=== PATIENT | male | born 1960 | race Caucasian/White ===

== ENCOUNTER 2019-08-29 06:48 | Inpatient (IN) ==
--- NOTE | 2019-08-03 15:38 | PAT Medication Instructions ---
Medication Instructions Date of Service August 03, 2019 Home Medications Medication Instructions Recorded apixaban [Eliquis] 5 mg PO Q12H #60 tab 04/14/19 gabapentin 100 mg PO TID 04/17/18 [History Confirmed 08/03/19] losartan-hydrochlorothiazide 1 tab PO QAM 04/17/18 [History Confirmed 08/03/19] metoprolol succinate 50 mg PO BID 04/17/18 [History Confirmed 08/03/19] naproxen 500 mg PO BID PRN 04/17/18 [History Confirmed 08/03/19] omeprazole 40 mg PO QAM 04/17/18 [History Confirmed 08/03/19] acetaminophen [Tylenol] 650 mg PO Q6H PRN 04/09/19 [History Confirmed 08/03/19] ibuprofen 200 mg PO QID PRN 04/09/19 [History Confirmed 08/03/19] apixaban [Eliquis] 5 mg PO Q12H #60 tab 04/14/19 [Rx Confirmed 08/03/19] carvedilol 12.5 mg PO BID 08/03/19 [History Confirmed 08/03/19] furosemide 20 mg PO QAM 08/03/19 [History Confirmed 08/03/19] glimepiride 2 mg PO QAM 08/03/19 [History Confirmed 08/03/19] hydrochlorothiazide 12.5 mg PO QAM 08/03/19 [History Confirmed 08/03/19] linagliptin [Tradjenta] 5 mg PO QAM 08/03/19 [History Confirmed 08/03/19] potassium chloride 10 meq PO QAM 08/03/19 [History Confirmed 08/03/19] ASK your surgeon for instructions naproxen 500 mg PO BID PRN 04/17/18 [History Confirmed 08/03/19] ibuprofen 200 mg PO QID PRN 04/09/19 [History Confirmed 08/03/19] ASK your prescriber and surgeon apixaban [Eliquis] 5 mg PO Q12H (in order for spinal anesthesia, Apixaban/Eliquis needs to be stopped 3 days/72 hours before surgery. Please check if okay with doctor that prescribes this to you) DO NOT take the morning of surgery losartan-hydrochlorothiazide 1 tab PO QAM 04/17/18 [History Confirmed 08/03/19] furosemide 20 mg PO QAM 08/03/19 [History Confirmed 08/03/19] glimepiride 2 mg PO QAM 08/03/19 [History Confirmed 08/03/19] hydrochlorothiazide 12.5 mg PO QAM 08/03/19 [History Confirmed 08/03/19] linagliptin [Tradjenta] 5 mg PO QAM 08/03/19 [History Confirmed 08/03/19] potassium chloride 10 meq PO QAM 08/03/19 [History Confirmed 08/03/19] Take morning of surgery With a small sip of water, OTHERWISE NOTHING TO EAT OR DRINK AFTER MIDNIGHT: gabapentin 100 mg PO TID 04/17/18 [History Confirmed 08/03/19] metoprolol succinate 50 mg PO BID 04/17/18 [History Confirmed 08/03/19] omeprazole 40 mg PO QAM 04/17/18 [History Confirmed 08/03/19] acetaminophen [Tylenol] 650 mg PO Q6H PRN (okay to take up to 4 hours prior to surgery if needed) carvedilol 12.5 mg PO BID 08/03/19 [History Confirmed 08/03/19] Take evening before surgery gabapentin 100 mg PO TID 04/17/18 [History Confirmed 08/03/19] metoprolol succinate 50 mg PO BID 04/17/18 [History Confirmed 08/03/19] acetaminophen [Tylenol] 650 mg PO Q6H PRN (if needed) carvedilol 12.5 mg PO BID 08/03/19 [History Confirmed 08/03/19] Other Notes If you have any questions please call us at [phone] or [phone] or [phone] or [phone]
--- NOTE | 2019-08-06 07:59 | History & Physical Report ---
Date of Service August 06, 2019 date of surgery: 08-29-19 Assessment & Plan (1) Bilateral primary osteoarthritis of knee: Further care discussed with patient and at this point in time has failed conservative measures and would like to proceed with bilateral total knee replacements. Plan on discharge will be home with home health physical therapy. DVT prophalaxis with TEDs, SCDs and Xarelto for a month postop. Patient will have follow up appointment in our office two weeks post op for staple/suture removal and re-evaluation. Patient otherwise has no other questions or concerns. will check BSG and A1C pre-op, will require medical clearance prior to surgery, PCP is Dr Wiggins. History of Present Illness Chief Complaint: bilateral knee pain Primary Care Provider: Awa Wiggins Mr Haro is a 59 year old male who is here for a follow up of bilateral knee pain, presents for pre-op evaluation prior to bilateral total knee replacements by dr tamayo on 08/29/19. Currently the patient states that the symptoms are moderate-severe and is described as aching, sharp and throbbing. his symptoms occur intermittently. He rates his current pain as 6/10 and worst is 8/10. The symptoms are aggravated by ascending stairs, daily activities, descending stairs, driving, first steps while awake, kneeling, movement, repetitive activities, sleeping in any position, squatting and walking. Eitan states that the symptoms are relieved by no specific activity. In addition to knee pain equally on both sides the patient is also experiencing decreased mobility, difficulty bending, difficulty going to sleep, limping, nighttime awakening, pain, stiffness, tenderness and weakness. Pertinent negatives include chills and fever. The patient has had a previous x-ray and MRI. Prior NSAIDs include naproxen. Prior pain medications include oxycodone. He has been treated with a corticosteroid injection on the right and left side equally. Patient ambulates daily with cane. Patient has had arthroscopic surgery. Patient has had previous b/l knee arthroscopy with Dr. Tamayo in 2002. Allergies Allergy/AdvReac Type Severity Reaction Status Date / Time No Known Allergies Allergy Verified 08/03/19 14:11 Home Medications Home Medications Medication Instructions Recorded Confirmed Type gabapentin 100 mg PO TID 04/17/18 08/03/19 History losartan-hydrochlorothiazide 1 tab PO QAM 04/17/18 08/03/19 History naproxen 500 mg PO BID PRN 04/17/18 08/03/19 History acetaminophen [Tylenol] 650 mg PO Q6H PRN 04/09/19 08/03/19 History ibuprofen 200 mg PO QID PRN 04/09/19 08/03/19 History apixaban [Eliquis] 5 mg PO Q12H #60 tab 04/14/19 08/03/19 Rx carvedilol 12.5 mg PO BID 08/03/19 08/03/19 History furosemide 20 mg PO QAM 08/03/19 08/03/19 History glimepiride 2 mg QAM 08/03/19 08/06/19 History hydrochlorothiazide 12.5 mg PO QAM 08/03/19 08/03/19 History linagliptin [Tradjenta] 5 mg PO QAM 08/03/19 08/03/19 History potassium chloride 10 meq PO QAM 08/03/19 08/03/19 History cholecalciferol (vitamin D3) 1,000 unit PO DAILY 08/06/19 08/06/19 History [Vitamin D3] famotidine 40 mg PO BID 08/06/19 08/06/19 History spironolactone 25 mg PO DAILY 08/06/19 08/06/19 History Past Med/Surg History Medical History A-fib diagnosed 04/2019- on Eliquis/beta daniella Anemia chronic CAD (coronary artery disease) one vessel, non-obstructive CAD per 05/2019 cardiac cath Diabetes mellitus, type 2 NIDDM GERD (gastroesophageal reflux disease) controlled History of asthma controlled Hx of gout Hypertension Morbid obesity Osteoarthritis Osteoporosis Peripheral neuropathy Pulmonary HTN per 07/2019 right heart cath Surgical History History of ankle surgery left ankle/bone spur removal History of repair of rotator cuff left x 2 History of tonsillectomy History of tooth extraction Hx of cardiac cath right heart cath: 07/03/19: PAP are much less compared to what was found of TTE (after commencement of diuretics). RAP 12. RV 48 x 11. PA 46 x 25 with a mean PAP 34. left heart cath: 05/25/19: Mild one vessel CAD (20% pLAD). evidence of prior apical infarction on LVgram and nuclear perfusion scan but no obstructive disease by angiography today (suspected plaque erosion with distal embolizat ion sometime in the past from the plaque noted in the pLAD resulting in an apical infarction). Family History Mother Family history of diabetes mellitus Father Family history of diabetes mellitus Social History Preferred Language: Polish Communication Ability: Effective Planning Supervisor Required: No Beliefs That Will Affect Care: None Current Living Situation: Spouse Feels Safe at Home: Yes Safety Concerns: Feels Safe At This Time Smoking Status: Never smoker Do You Dip or Chew Tobacco: No ; Second Hand Exposure: No ; Hx Alcohol Use: Yes Alcohol type: hard liquor Hx Substance Use: No Review of Systems Review of Systems: All systems reviewed & are unremarkable except as noted in HPI & below Constitutional: no fever, no chills and no sweats Cardiovascular: no chest pain, no dyspnea and no orthopnea Gastrointestinal: no nausea and no vomiting Musculoskeletal: as per Subjective / HPI Physical Exam Physical Exam: Ht: 6ft 1 in Wt: 139kg BP: 164/98 Pulse: 85 Constitutional: WD/WN, vitals as above Respiratory: normal respiratory effort, lungs clear to auscultation no respiratory distress Cardiovascular: RRR, no murmur, no edema Gastrointestinal (Abdomen): normal bowel sounds, soft, nontender, no hepatosplenomegaly Musculoskeletal: Bilateral knee Physical exam Overall patient has neutral alignment bilaterally, there is no atrophy or ecchymosis noted, she does have +2 suprapatellar effusion in both of her knees, she has tenderness to both medial and lateral joint lines to her right knee, more medial sided tenderess to the left knee. negative patellar apprehension, she does have crepitation noted to both knees with active ROM. bilateral knees stable to valgus and varus stress, leyda negative, posterior drawer negative. Range of motion right knee 0/3/110, left knee 0/3/115. her lower extremities are neurovascularly intact, calf soft and non tender, DP pulse +2 bilaterally. Results & Data Laboratory Results Laboratory Results PT 11.5 Seconds (9.0-12.0) 08/06/19 12:31 INR 1.1 (0.9-1.1) 08/06/19 12: APTT 31.7 Seconds (21.0-31.0) H 08/06/19 12: PTT Ratio 1.2 08/06/19 12:31 Diagnostic Findings BILATERAL KNEE X-RAYS SHOWING ADVANCED DEGENERATIVE CHANGES BILATERAL KNEES GREATEST IN MEDIAL COMPARTMENT AND PATELLOFEMORAL JOINT, JOINT SPACE NARROWING, OSTEOPHYTE FORMATION, SUBCHONDRAL SCLEROSIS. NO ACUTE BONY PATHOLOGY.
--- NOTE | 2019-08-06 11:46 | Anesthesiology Consultation ---
Date of Service August 06, 2019 Assessment & Plan (1) Encounter for pre-operative examination: - Awaiting review of preop testing (labs, EKG, CXR). - Awaiting most recent cardiology office visit note (Dr. Judge/Olga) as well as most recent stress test if available. - Check BSG AM DOS - Apixaban/Eliquis instructions: patient made aware that in order for spinal anesthesia, Eliquis needs to be held 72 hours/3 days prior to surgery. Patient voiced understanding/will check if okay with prescriber. Chart Review Chart Review: Patient seen in Pre Admission Testing Teaching & Discussion Pre-Anesthesia Teaching/Discussion Notes: Instructed NPO after midnight before surgery,except medications with 15 cc of water. Medication instructions provided according to the PAT guidelines. History Surgery Operation Date: 08/29/19 07:00 Proposed Procedures p Bilateral Total Knee Arthroplasty - Jonah Robertson DO Height/Weight Height: 6 ft 1 in Weight: 139.2 kg Allergies Allergy/AdvReac Type Severity Reaction Status Date / Time No Known Allergies Allergy Verified 08/03/19 14:11 Medications Home Medications Medication Instructions Recorded Confirmed Last Taken gabapentin 100 mg PO TID 04/17/18 08/03/19 04/10/19 losartan-hydrochlorothiazide 1 tab PO QAM 04/17/18 08/03/19 Unknown naproxen 500 mg PO BID PRN 04/17/18 08/03/19 Unknown acetaminophen [Tylenol] 650 mg PO Q6H PRN 04/09/19 08/03/19 Unknown ibuprofen 200 mg PO QID PRN 04/09/19 08/03/19 Unknown apixaban [Eliquis] 5 mg PO Q12H #60 tab 04/14/19 08/03/19 Unknown carvedilol 12.5 mg PO BID 08/03/19 08/03/19 Unknown furosemide 20 mg PO QAM 08/03/19 08/03/19 Unknown glimepiride 2 mg QAM 08/03/19 08/06/19 Unknown hydrochlorothiazide 12.5 mg PO QAM 08/03/19 08/03/19 Unknown linagliptin [Tradjenta] 5 mg PO QAM 08/03/19 08/03/19 Unknown potassium chloride 10 meq PO QAM 08/03/19 08/03/19 Unknown cholecalciferol (vitamin D3) 1,000 unit PO DAILY 08/06/19 08/06/19 Unknown [Vitamin D3] famotidine 40 mg PO BID 08/06/19 08/06/19 Unknown spironolactone 25 mg PO DAILY 08/06/19 08/06/19 Unknown Past Medical History Medical History A-fib diagnosed 04/2019- on Eliquis/beta daniella Anemia chronic CAD (coronary artery disease) one vessel, non-obstructive CAD per 05/2019 cardiac cath Diabetes mellitus, type 2 NIDDM GERD (gastroesophageal reflux disease) controlled History of asthma controlled Hx of gout Hypertension Morbid obesity Osteoarthritis Osteoporosis Peripheral neuropathy Pulmonary HTN per 07/2019 right heart cath Exercise / Class Metabolic Activity III < 4 Walking/Shop/Light housework Past Family History Family History Mother Family history of diabetes mellitus Father Family history of diabetes mellitus Past Surgical History Surgical History History of ankle surgery left ankle/bone spur removal History of repair of rotator cuff left x 2 History of tonsillectomy History of tooth extraction Hx of cardiac cath right heart cath: 07/03/19: PAP are much less compared to what was found of TTE (after commencement of diuretics). RAP 12. RV 48 x 11. PA 46 x 25 with a mean PAP 34. left heart cath: 05/25/19: Mild one vessel CAD (20% pLAD). evidence of prior apical infarction on LVgram and nuclear perfusion scan but no obstructive disease by angiography today (suspected plaque erosion with distal embolization sometime in the past from the plaque noted in the pLAD resulting in an apical infarction). Past Anesthesia History No Hx of Anesthesia Complications and No Family Hx of Anesthesia Complications History of PONV No Hx of PONV and No Hx of Motion Sickness Social History Smoking Status: Never smoker Do You Dip or Chew Tobacco: No Hx Alcohol Use: Yes Alcohol type: hard liquor alcohol intake frequency: holidays/special occasions only Hx Substance Use: No substance use type: does not use Review of Systems Rare wheezing. Patient denies chest pain, shortness of breath, dyspnea on exertion, palpitations. Physical Exam Vital Signs VITALS BP 98/62 (manual right) P 89 TEMP 98.3 SP02 98%RA RESP 18 PHYSICAL Full neck and c-spine range of motion. Full TMJ range of motion. TMD 3.5 finger breaths Mallampati Score 2 Dentition: missing molars Lungs: clear throughout to auscultation Cardiac: irregularly irregular, regular rhythm, no murmurs noted Spine: normal Carotid arteries: negative bruit Extremities: no edema Trimmed gregorio Testing Laboratory Results 07/03/19 WBC 8.8 H/H 11.7/39.9 PLATELETS 329 SODIUM 139 POTASSIUM 4.5 CHLORIDE 105 CO2 29.0 BUN 27 CREATININE 1.43 GLUCOSE 107 HGBA1C 6.6% Chest X-Ray Date: 04/10/19 Mild to Moderate cardiomegaly. Diaphragms are smooth. Slight prominence of pulmonary vasculature. No focal infiltrate. Small fixed hiatal hernia. Echocardiogram Date: 05/23/19 EF 50-55%. Mild cLVH. Cannot exclude posterior wall motion abnormality. Technically difficult study due to poor acoustic windows. Patient noted to be in a. fib throughout. No significant valvular disease. Severe pulmonary HTN (s ubsequent right heart cath done 07/2019*). Cardiac Catheterization Date: 07/03/19 right heart cath: 07/03/19: PAP are much less compared to what was found of TTE (after commencement of diuretics). RAP 12. RV 48 x 11. PA 46 x 25 with a mean PAP 34. left heart cath: 05/25/19: Mild one vessel CAD (20% pLAD). evidence of prior apical infarction on LVgram and nuclear perfusion scan but no obstructive disease by angiography today (suspected plaque erosion with distal embolization sometime in the past from the plaque noted in the pLAD resulting in an apical infarction). LVEF 55%. "May proceed with the planned knee operation without additional cardiac testing."
--- NOTE | 2019-08-06 13:02 | XRay Report ---
XR chest Pre-admission PA/Lat CLINICAL HISTORY: Preoperative chest. Cough. COMPARISON STUDY: 04/10/2019 FINDINGS: The heart is the upper limits of normal in size. There is no failure. There is no focal pul monary consolidation. There are no pleural effusions.[ IMPRESSION: No active disease in the chest. ACT 112: Negative or not required by law. Electronically signed by: Judd Azar M.D. 08/06/2019 1:00 PM
[2019-08-06 14:20] LABS: INR 1.1 (0.9-1.1); Partial Thromboplastin Ratio 1.2; Partial Thromboplastin Time 31.7 Seconds (21.0-31.0); Prothrombin Time 11.5 Seconds (9.0-12.0)
--- NOTE | 2019-08-06 15:39 | Electrocardiogram Report ---
Test Reason : Blood Pressure : / mmHG Vent. Rate : 084 BPM Atrial Rate : 416 BPM P-R Int : 000 ms QRS Dur : 098 ms QT Int : 414 ms P-R-T Axes : 000 079 090 degrees QTc Int : 489 ms Atrial fibrillation Prolonged QT Abnormal ECG When compared with ECG of 10-APR-2019 12:10, QT has lengthened Confirmed by Janes Cr ([id number]) on 08/06/2019 3:39:15 PM Referred By: Jonah Robertson Confirmed By:Janes Cr
[~2019-08-29 06:48] MED LIST: ACETAMINOPHEN 500 MG TAB PO SCH; BUPIVACAINE 0.5 % 5 MG/1 ML PF 10ML VIAL ONE; CEFAZOLIN 3000MG 72.5 ML IV SCH; CeleBREX 200 MG CAP PO SCH; FAMOTIDINE 20 MG TAB PO SCH; GABAPENTIN 600 MG DOSE PO SCH; LR 500ML BOLUS, THEN 15ML/HR IV SCH; METOCLOPRAMIDE HCL 10 MG TABLET PO SCH; ROPIVACAINE 0.5% 5 MG/ML 30 ML VIAL ONE; ROPIVACAINE 0.5% HCL/PF 150 MG, BUPIVACAINE 0.5% MPF 30 ML, EPINEPHrine 30MG/30ML (OR U... INFIL SCH; TRANEXAMIC ACID 1,000 MG **IV Intra-op IV SCH; TRANEXAMIC ACID 1,000 MG **IV Pre-op IV SCH; dexAMETHasone 4 MG TAB PO SCH
[2019-08-29] MEDS ORDERED: ORTHO JOINT ANESTHETIC ONE (07:09)
[2019-08-29] MEDS ORDERED: BACITRACIN INJ 50,000 UNIT VIAL ONE ×2 (07:10→10:41)
[2019-08-29] MEDS ORDERED: ONDANSETRON INJ 2 MG/ML 2 ML VIAL ONE (07:13)
[2019-08-29] MEDS ORDERED: PROPOFOL IV EMULSION 10 MG/ML 20 ML VIAL IV ONE (07:13)
[2019-08-29] MEDS ORDERED: MIDAZOLAM HCL 1 MG/ML 2ML VIAL ONE ×2 (07:13→07:14)
[2019-08-29] MEDS ORDERED: DEXAMETHASONE SOD INJ 4 MG/ML VIAL ONE (07:13)
[2019-08-29] MEDS ORDERED: NEOSTIGMINE METHYLSULFATE 5 MG/5 ML SYR ONE (07:13)
[2019-08-29] MEDS ORDERED: GLYCOPYRROLATE 0.2 MG/ML VIAL ONE ×2 (07:13→10:19)
[2019-08-29] MEDS ORDERED: LIDOCAINE HCL 2% 2 ML VIAL/AMP(20MG/ML) INFIL ONE (07:13)
[2019-08-29] MEDS ORDERED: fentaNYL citrate 100 MCG/2 ML VIAL ONE ×2 (07:14→10:01)
--- NOTE | 2019-08-29 07:30 | History & Physical Bridge Note ---
Date of Service August 29, 2019 History & Physical Bridge Note I have examined the patient, reviewed the History & Physical and in the interval since the performance of the History & Physical I have noted the following changes of clinical significance: no changes noted
[2019-08-29] MEDS ORDERED: ePHEDrine sulfate 50 MG/ML AMP IV PRN (08:00)
[2019-08-29] MEDS ORDERED: ONDANSETRON INJ 2 MG/ML 2 ML VIAL IV PRN ×2 (08:00→13:04)
[2019-08-29] MEDS ORDERED: ATROPINE SULFATE 0.1 MG/ML 10ML SYR IV PRN (08:00)
[2019-08-29] MEDS ORDERED: KETOROLAC 30 MG/ML VIAL IV PRN (08:00)
[2019-08-29] MEDS ORDERED: PHENYLEPHRINE 100MCG/ML 5ML SYR IV PRN (08:00)
[2019-08-29] MEDS ORDERED: PHENYLEPHRINE 100MCG/ML 5ML SYR ONE (09:39)
[2019-08-29] MEDS ORDERED: ROCURONIUM BROMIDE 10 MG/ML 5 ML VIAL ONE (09:39)
--- NOTE | 2019-08-29 10:55 | Operative Report ---
Post Operative Report Pre & Post Diagnosis Operation Date: 08/29/19 08:20 Pre-Op Diagnosis: Bilateral Knee Osteoarthritis Post-Op Diagnosis: Bilateral Knee Osteoarthritis I identified the patient and participated in the time-out.: Yes Procedure Operation Date: 08/29/19 08:20 Actual Procedures p Bilateral Total Knee Arthroplasty(Bilateral) utilizing [employer] journey 2 non-block total knee arthroplasty right size 8 femur 7 tibia 10 polyethylene 35 oval patella left size 8 femur 7 tibia 9 polyethylene 35 oval patella- Jonah Robertson DO Surgeon Jonah Robertson DO [employer] GANN Estimated Blood Loss 10 Findings Consistent with Post-Op Diagnosis Patient presents severe end-stage tricompartmental degenerative joint disease bilateral knees no response to conservative management patient had varus alignment 10 degree flexion contractures medial osteophytes eburnated bone subchondral cystic changes all no response to conservative management Specimens Bone and cartilage Drains Medium bore Hemovac Complications none Disposition Accompanied Patient To Recovery: No Disposition: Recovery Room Indications Patient presents being seen evaluate with complaints of severe end-stage tricompartmental degenerative joint disease bilateral knees no response to conservative management patient failed attempts of Visco supplementation corticosteroid injection relative rest activity modification bracing physical therapy patient presents for bilateral total knee arthroplasty the above intraoperative findings were noted Description of Procedure After proper prepping and draping of the bilateral lower extremities, an anterior midline incision was made over the region of the extensor extensor mec hanism of the left knee. After meticulous hemostasis was obtained and maintained in subcutaneous tissues a medial parapatellar incision was made The patella was subluxed lateralward the medial lateral gutter were cleaned from any hypertrophic synovitis and scar tissue of the distal femoral block was placed and the distal femoral osteotomy cut was made subsequently the chamfers anterior and posterior osteotomy cuts were made utilizing the 4-in-1 block the tibia was subsequently subluxed anteriorward medial and ateral meniscal remnants were excised in their entirety remnants of the anterior and posterior cruciate ligaments were excised in their entirety excellent exposure of the proximal tibia was obtained the tibial osteotomy guide was placed on the proximal tibial osteotomy cut was made once again the knee was irrigated with copious amounts of sterile saline solution the patella was subsequently everted lateralward thickened scar tissue around the patella was removed the patella was subsequently cut utilizing a freehand technique and was drilled prepared for final preparation and placement of patella socially flexion-extension gaps were checked and the equal and symmetric trials were placed to the appropriate femoral and tibial trials with poly-spacer being placed for equal flexion and extension gaps and full range of motion including extension to 0 and flexion to 140 the trial components after having been taken to recovery range of motion was subsequently removed meticulous hemostasis was obtained and maintained subsequently a knee block injection of joint cocktail including ropivacaine 0.5% 150 mg. Bupivacaine 0.5% epinephrine 1-200,030 mL's toradol 30 mg dexamethasone 4 mg ketamine 10 mg clonidine 100 micrograms normal saline solution 30 mg was infiltrated into the soft tissues of the posterior knee medial lateral gutters and periosteal synovium special attention was paid to protect neurovascular structures at all times subsequently trial components having been removed the knee was irrigated with sterile saline solution. debris was removed the proximal tibia was subsequently prepared and was made ready for the placement of the tibial component tibial component was also cemented and tamped into position the femoral component was subsequently placed and cemented in the position the patellar component was subsequently cemented in position because hemostasis once again obtained and maintained wound having been thoroughly irrigated with debridement and debridement lavage was performed as well as a medial parapatellar incision closed with #1 Vicryl in interrupted fashion subcutaneous was closed with #2 Vicryl skin was closed with skin clips Next, an anterior midline incision was made over the region of the extensor extensor mechanism of the right knee. After meticulous hemostasis was obtained and maintained in subcutaneous tissues a medial parapatellar incision was made The patella was subluxed lateralward the medial lateral gutter were cleaned from any hypertrophic synovitis and scar tissue of the distal femoral block was placed and the distal femoral osteotomy cut was made subsequently the chamfers anterior and posterior osteotomy cuts were made utilizing the 4-in-1 block the tibia was subsequently subluxed anteriorward medial and ateral meniscal remnants were excised in their entirety remnants of the anterior and posterior cruciate ligaments were excised in their entirety excellent exposure of the proximal tibia was obtained the tibial osteotomy guide was placed on the proximal tibial osteotomy cut was made once again the knee was irrigated with copious amounts of sterile saline solution the patella was subsequently everted lateralward thickened scar tissue around the patella was removed the patella was subsequently cut utilizing a freehand technique and was drilled prepared for final preparation and placement of patella socially flexion-extension gaps were checked and the equal and symmetric trials were placed to the appropriate femoral and tibial trials with poly-spacer being placed for equal flexion and extension gaps and full range of motion including extension to 0 and flexion to 140 the trial components after having been taken to recovery range of motion was subsequently removed meticulous hemostasis was obtained and maintained subsequently a knee block injection of joint cocktail including ropivacaine 0.5% 150 mg. Bupivacaine 0.5% epinephrine 1-200,030 mL's toradol 30 mg dexamethasone 4 mg ketamine 10 mg clonidine 100 micrograms normal saline solution 30 mg was infiltrated into the soft tissues of the posterior knee medial lateral gutters and periosteal synovium special attention was paid to protect neurovascular structures at all times subsequently trial components having been removed the kn ee was irrigated with sterile saline solution. debris was removed the proximal tibia was subsequently prepared and was made ready for the placement of the tibial component tibial component was also cemented and tamped into position the femoral component was subsequently placed and cemented in the position the patellar component was subsequently cemented in position because hemostasis once again obtained and maintained wound having been thoroughly irrigated with debridement and debridement lavage was performed as well as a medial parapatellar incision closed with #1 Vicryl in interrupted fashion subcutaneous was closed with #2 Vicryl skin was closed with skin clips.. PA-C was necessary for prepping and drapping as well as wound closure of deep fascia Sub cutaneous tissue and skin and was necessary for the case. A sterile compressive dressings were placed, patient was taken to recovery in stable condition of report dictated by Marcelo I attest to the content of the Intraoperative Record and any orders documented therein. Any exceptions are noted below. I attest to the content of the Intraoperative Record and any orders documented therein. Any exceptions are noted below.
[2019-08-29] MEDS: HYDROmorphone INJ 1 MG/ML SYRINGE IV PRN ×8 (11:53→12:28)
--- NOTE | 2019-08-29 12:20 | XRay Report ---
XR knee LT 1 or 2V routine CLINICAL HISTORY: Surgical Post Op postoperative evaluation COMPARISON: None. DISCUSSION: Anatomic alignment post total left knee arthroplasty. Could contact between prosthetic an d underlying bone. Surgical drains are in position. Corrected soft tissue postoperative change IMPRESSION: No acute process post total left knee arthroplasty. ACT 112: Negative or not required by law. The above report was generated using voice recognition software. It may contain grammatical, syntax or spelling errors. Electronically signed by: Miguel Brasher M.D. 08/29/2019 12:19 PM
--- NOTE | 2019-08-29 12:24 | XRay Report ---
XR knee RT 1 or 2V routine HISTORY: 59 years-old Male Surgical Post Op right knee total joint arthroplasty. History of degenera tive joint disease COMPARISON: Right knee radiographs 04/11/2018 TECHNIQUE: 2 views of the right knee FINDINGS: Right knee total joint arthroplasty and patella resurfacing. Anterior midline skin binta are noted along with expected postsurgical soft tissue swelling and deep tissue air with surgical drainage cath eter. No acute fracture or retained foreign body. IMPRESSION: Satisfactory alignment of the right knee total joint arthroplasty. ACT 112: Negative or not required by law. The above report was generated using voice recognition software. It may contain grammatical, syntax o r spelling errors. Electronically signed by: Dave Echols M.D. 08/29/2019 12:23 PM
--- NOTE | 2019-08-29 12:50 | Anesthesiology Progress Note ---
Date of Service August 29, 2019 Anesthesia Post Procedure Vital Signs Vital Signs: Temp Pulse Pulse Resp BP Pulse Ox 08/29/19 12:45 36.8 C 70 18 123/89 96 08/29/19 12:35 79 18 120/85 96 08/29/19 12:25 84 18 136/94 96 08/29/19 12:15 86 18 138/93 94 08/29/19 12:05 88 18 143/92 H 99 08/29/19 11:55 74 18 131/86 100 08/29/19 11:45 82 18 130/92 100 08/29/19 11:38 36.2 C L 88 18 94/68 L 97 08/29/19 07:27 36.7 C 78 20 146/97 H 99 Pain Intensity Bilateral Knee: Pain Intensity: 3 Transfer of Care Handoff Completed per policy Notes Mental Status: alert / awake / arousable Patient Amnestic to Procedure: Yes Nausea / Vomiting: adequately controlled Pain: adequately controlled Airway Patency, RR, SpO2: stable & adequate BP & HR: stable & adequate Hydration State: stable & adequate Anesthetic Complications: no major complications apparent
[2019-08-29] MEDS ORDERED: bisacodyL 10 MG SUPP PR PRN (13:04)
[2019-08-29] MEDS ORDERED: SODIUM CHLORIDE 0.9% 1000ML 1,000 ML IV SCH (13:04)
[2019-08-29] MEDS ORDERED: NALOXONE HCL 0.4 MG/1 ML VIAL/CARP IV PRN (13:04)
[2019-08-29] MEDS ORDERED: PHARMACY GLYCEMIC MGMT CONSULT PRN (13:36)
[2019-08-29] MEDS: GABAPENTIN 100 MG CAP PO SCH ×2 (13:39→20:04)
[2019-08-29] MEDS: ACETAMINOPHEN 500 MG TAB PO SCH ×2 (13:39→21:18)
[2019-08-29] MEDS ORDERED: GLUCAGON FOR INJ 1 MG VIAL SQ PRN (14:00)
[2019-08-29] MEDS ORDERED: CARBOHYDRATES FOR HYPOGLYCEMIA PO PRN (14:00)
[2019-08-29] MEDS ORDERED: DEXTROSE 50% 50 ML SYRINGE IV PRN (14:00)
[2019-08-29] MEDS ORDERED: GLUCOSE 40% GEL 15 GM TUBE PO PRN (14:00)
[2019-08-29] MEDS ORDERED: GLUCOSE 10 TABS/TUBE PO PRN (14:00)
--- NOTE | 2019-08-29 14:06 | Pharmacy Report ---
Pharmacy Glycemic Short Note 2 - Date of Service August 29, 2019 - Glycemic Short BSG Results (Last 24 hours): 08/29/19 08/29/19 07:33 11:38 POC Glucose 142 H 204 H OUTPATIENT ANTIDIABETIC REGIMEN: * Linagliptin 5 mg daily * A1c 6.9% 04/10/19 - updated A1c pending ASSESSMENT: * 59 yr old T2DM s/p b/l TKA * Anticipate steroid induced hyperglycemia per patient was given both oral and IV dexamethasone rosalba-op in addition to ortho mix (contains 4 mg DXM) * Pt is maintained on oral antidiabetic agents as an outpatient * Will hold oral agents for admission and utilize SQ basal bolus insulin regimen which is the recommended regimen for inpatient glycemic control. * One time dose of NPH 0.4 units/kg (based on AdjBW) * Novolog dosed at weight/stress 3 PLAN FOR INPATIENT GLYCEMIC CONTROL: * Hold outpatient oral diabetes medications * Basal insulin * NPH 40 units SQ x 1 * Bolus insulin * NovoLog per scale ACHS or Q6hrs while NPO * Goal Range: Low 110 mg/dL - High 140 mg/dL * Correction Factor: 15 mg/dL/unit * Nutritional / Prandial insulin per carb ratio of 1 unit per 5 grams CHO consumed * Overnight checks at 00 and 04 PLAN FOR DISCHARGE: * A1c pending * A1c from April 2019 is at goal
[2019-08-29] MEDS ORDERED: INSULIN HUMAN NPH SC ONE (14:15)
[2019-08-29] MEDS: CEFAZOLIN 2000MG 2,000 MG/15 ML SYR IV SCH ×2 (16:37→23:57)
[2019-08-29] MEDS: INSULIN ASPART 100 UNITS/ML 3 ML PEN SC SCH ×3 (17:36→23:57)
[2019-08-29] MEDS: FERROUS GLUCONATE 324 MG TAB PO SCH (17:40)
[2019-08-29] MEDS: OXYCODONE HCL IR 5 MG TAB (IMMEDIATE RELEASE) PO PRN (20:01)
[2019-08-29] MEDS: carvediloL 12.5 MG TAB PO SCH (20:03)
[2019-08-29] MEDS: SENNA 8.6 MG TAB PO SCH (20:03)
[2019-08-29] MEDS: FAMOTIDINE 40 MG TABLET PO SCH (20:04)
[2019-08-29] MEDS: DOCUSATE SODIUM 100 MG CAP PO SCH (20:36)
[2019-08-30] MEDS: INSULIN ASPART 100 UNITS/ML 3 ML PEN SC SCH ×5 (03:47→21:48)
[2019-08-30] MEDS: ACETAMINOPHEN 500 MG TAB PO SCH ×3 (05:09→21:55)
[2019-08-30 06:11] LABS: Hematocrit (blood only) 33.6 % (42-52); Hemoglobin 10.1 g/dL (14.0-18.0); Mean Corpuscular Hemoglobin 21.7 pg (25-34); Mean Corpuscular Hgb Conc 30.1 g/dL (32-36); Mean Corpuscular Volume 72.1 fL (80-100); Mean Platelet Volume 10.8 fL (7.4-10.4); Platelet Count 298 K/uL (130-400); RDW Coefficient of Variation 18.7 % (11.5-14.5); RDW Standard Deviation 49.1 fL (36.4-46.3); Red Blood Count 4.66 M/uL (4.7-6.1); White Blood Count 14.72 K/uL (4.8-10.8)
[2019-08-30 06:50] LABS: BUN Creatinine Ratio 23.6 (10-20); Calcium 9.2 mg/dl (8.5-10.1); Est GFR (African American) 66.1; Est GFR (Non-African American) 57.1
--- NOTE | 2019-08-30 07:57 | Anesthesiology Progress Note ---
Date of Service August 30, 2019 Anesthesia Post Procedure Vital Signs Vital Signs: Temp Pulse Pulse Resp BP Pulse Ox 08/30/19 07:07 36.6 C 91 H 20 135/99 99 08/30/19 03:45 36.8 C 99 H 20 100/69 93 08/29/19 22:55 37.2 C 94 H 20 138/87 94 08/29/19 20:06 36.8 C 90 20 132/82 99 08/29/19 15:58 36.6 C 84 16 123/74 91 08/29/19 14:56 36.4 C L 86 16 124/80 93 08/29/19 14:00 92 H 18 119/77 100 08/29/19 13:30 36.4 C L 67 16 131/84 99 08/29/19 13:06 36.8 C 76 15 127/87 97 08/29/19 12:45 36.8 C 70 18 123/89 96 08/29/19 12:35 79 18 120/85 96 08/29/19 12:25 84 18 136/94 96 08/29/19 12:15 86 18 138/93 94 08/29/19 12:05 88 18 143/92 H 99 08/29/19 11:55 74 18 131/86 100 08/29/19 11:45 82 18 130/92 100 08/29/19 11:38 36.2 C L 88 18 94/68 L 97 Pain Intensity Bilateral Knee: Pain Intensity: 3 Notes Mental Status: alert / awake / arousable and participated in evaluation Patient Amnestic to Procedure: Yes Nausea / Vomiting: adequately controlled Pain: adequately controlled Airway Patency, RR, SpO2: stable & adequate BP & HR: stable & adequate Hydration State: stable & adequate Anesthetic Complications: no major complications apparent and Pt Satisfied with anesthetic care
--- NOTE | 2019-08-30 08:01 | Orthopedic Progress Note ---
Date of Service August 30, 2019 Assessment & Plan (1) Bilateral primary osteoarthritis of knee: Postop day 1 status post bilateral total knee arthroplasties. PT/OT protocols. Weightbearing as tolerated. DVT prophylaxis with Eliquis twice daily, SCDTHIERNO perkins. Pain management with hydromorphone, oxycodone, Tylenol, Toradol. Mild leukocytosis-asymptomatic presently. Post likely secondary due to preoperative steroids and surgical stress. Will follow. Discharge planning-patient is planning for home health services upon discharge. Subjective Postop day 1 Patient currently lying in bed sleeping. He is in the process of doing his b edside exercises with heel props under his heels. He is easily awoken. He states that his pain control is fairly good this morning. Denies any chest pain or nausea and vomiting. He states that he has some mild shortness of breath with activity of which she has had. He denies using oxygen at home. No other complaints at this time. He is hoping to have home health services upon discharge. Physical Exam Physical Exam: Dressings are clean, dry, and intact. Calves are soft and nontender. Neurovascular is intact. Toes are mobile. He has good dorsiflexion and plantar flexion on bilateral feet/ankles. Hemovacs present and functioning. Results & Data ([facility]) Vital Signs (Past 12 Hours) Vital Signs Temp Pulse Resp BP Pulse Ox 08/30/19 07:07 36.6 C 91 H 20 135/99 99 08/30/19 03:45 36.8 C 99 H 20 100/69 93 08/29/19 22:55 37.2 C 94 H 20 138/87 94 08/29/19 20:06 36.8 C 90 20 132/82 99 Laboratory Results Laboratory Results WBC 14.72 K/uL (4.8-10.8) H 08/30/19 05:33 RBC 4.66 M/uL (4.7-6.1) L 08/30/19 05:33 Hgb 10.1 g/dL (14.0-18.0) L 08/30/19 05:33 Hct 33.6 % (42-52) L 08/30/19 05:33 MCV 72.1 fL (80-100) L 08/30/19 05:33 MCH 21.7 pg (25-34) L 08/30/19 05:33 MCHC 30.1 g/dL (32-36) L 08/30/19 05:33 RDW Std Deviation 49.1 fL (36.4-46.3) H 08/30/19 05:33 RDW Coeff of Maribel 18.7 % (11.5-14.5) H 08/30/19 05:33 Plt Count 298 K/uL (130-400) 08/30/19 05:33 MPV 10.8 fL (7.4-10.4) H 08/30/19 05:33 PT 11.5 Seconds (9.0-12.0) 08/06/19 12:31 INR 1.1 (0.9-1.1) 08/06/19 12:31 APTT 31.7 Seconds (21.0-31.0) H 08/06/19 12:31 PTT Ratio 1.2 08/06/19 12:31 Sodium 135 mmol/L (136-145) L 08/30/19 05:33 Potassium 4.0 mmol/L (3.5-5.1) 08/30/19 05:33 Chloride 101 mmol/L (98-107) 08/30/19 05:33 Carbon Dioxide 29 mmol/L (21-32) 08/30/19 05:33 Anion Gap 5.0 (3-11) 08/30/19 05:33 BUN 32 mg/dl (7-18) H 08/30/19 05:33 Creatinine 1.35 mg/dl (0.6-1.4) 08/30/19 05:33 Est Cr Clr Drug Dosing 87.0 ml/min 08/30/19 05:33 Est GFR ( Amer) 66.1 08/30/19 05:33 Est GFR (Non-Af Amer) 57.1 08/30/19 05:33 BUN/Creatinine Ratio 23.6 (10-20) H 08/30/19 05:33 Glucose 158 mg/dl (70-99) H 08/30/19 05:33 POC Glucose 132 mg/dl (70-99) H 08/30/19 03:36 Calcium 9.2 mg/dl (8.5-10.1) 08/30/19 05:33 Blood Type O Positive 08/06/19 12:31 Antibody Screen NEGATIVE 08/06/19 12:31
[2019-08-30] MEDS: GABAPENTIN 100 MG CAP PO SCH ×3 (08:37→22:15)
[2019-08-30] MEDS: carvediloL 12.5 MG TAB PO SCH ×2 (08:38→21:53)
[2019-08-30] MEDS: FAMOTIDINE 40 MG TABLET PO SCH ×2 (08:38→21:55)
[2019-08-30] MEDS: SPIRONOLACTONE 25 MG TAB PO SCH (08:38)
[2019-08-30] MEDS: APIXABAN 5 MG TABLET PO SCH ×2 (08:38→21:54)
[2019-08-30] MEDS: CHOLECALCIFEROL 1,000 UNITS 25 MCG TAB PO SCH (08:38)
[2019-08-30] MEDS: DOCUSATE SODIUM 100 MG CAP PO SCH ×2 (08:39→21:53)
[2019-08-30] MEDS: FERROUS GLUCONATE 324 MG TAB PO SCH ×2 (08:39→17:47)
[2019-08-30] MEDS: POTASSIUM CHLORIDE 10 MEQ TABCR PO SCH (08:39)
[2019-08-30] MEDS: MULTIVITAMIN TAB PO SCH (08:39)
[2019-08-30 08:47] LABS: Estimated Average Glucose 166 mg/dl; Hemoglobin A1C 7.4 % (4.5-5.6)
[2019-08-30] MEDS ORDERED: NON-FORMULARY MEDICATION (Linagliptin [Tradjenta] 5 MG) PO SCH (09:00)
[2019-08-30] MEDS ORDERED: GLIMEPIRIDE 2 MG TAB PO SCH (09:00)
[2019-08-30] MEDS ORDERED: LOSARTAN/HCTZ 50/12.5MG TAB PO SCH (09:00)
[2019-08-30] MEDS: OXYCODONE HCL IR 5 MG TAB (IMMEDIATE RELEASE) PO PRN ×3 (09:04→19:43)
--- NOTE | 2019-08-30 09:12 | Consultation ---
Date of Consultation August 30, 2019 Assessment & Plan (1) Bilateral primary osteoarthritis of knee: s/p b/l TKR by Dr Robertson, POD #1. Defer pain management, disposition, etc to orthopedics. (2) Acute blood loss anemia: mild-moderate. repeat CBC in am. MCV is microcytic -- check iron studies in am to r/o chronic iron deficiency. Cont Fe supplementation. (3) A-fib: Cont coreg for rate control. If rate control proves difficult consider changing to metoprolol in katherin. Cont eliquis for anticoagulation. (4) CAD (coronary artery disease): Minimal nonobstructive CAD (single vessel) on recent heart cath. No ischemic symptoms perioperatively. Cont BB. Really should be on statin therapy chronically. Will discuss with him prior to d/c. (5) Diabetes mellitus, type 2: Uncontrolled - 2nd to perioperative stress and dose of steroids yesterday. Pharmacy managing - appreciate their assistance. (6) GERD (gastroesophageal reflux disease): Cont H2 daniella (7) Hx of gout: with his gout history would suggest not using HCTZ chronically. will d/w patient. (8) Hypertension: low or low-normal BPs today but most recent level was acceptable. place ARB-HCTZ on hold. follow carefully. cont coreg. (9) Morbid obesity: BMI 41 (10) Peripheral neuropathy: 2nd DM. cont gabapentin. (11) Acute kidney injury: mild pre-op Cr was 1 today 1.3 hold ARB-HCTZ repeat BMP am (12) DVT prophylaxis: eliquis BID ?heavy alcohol intake periodically -- add MVI, thiamine, folate. Thank you for this consult. Will follow with you. History of Present Illness Requesting Physician: Jonah Robertson DO Reason for Consultation: post-op medical management Attending Physician: Jonah Robertson DO History of Present Illness 59yo male with HTN, T2DM, permanent a.fib on chronic anticoagulation, nonobstructive CAD, gout, morbid obesity, and chronic anemia (Fe def?) who is now POD #1 from b/l TKR by Dr Robertson. I saw the patient on the orthopedic floor and his biggest complaint was that of b/l knee pain. He denied headache, nausea, emesis, abd pain, chest pain, dyspnea, dizziness, or cough. He has passed flatus since the operation but no stool. BSGs have been elevated since the operation. Nursing staff report his BPs were mildly low this afternoon but have improved with time. He has been eating well since the surgery. Allergies Allergy/AdvReac Type Severity Reaction Status Date / Time No Known Allergies Allergy Verified 08/29/19 07:20 Home Medications Home Medications Medication Instructions Recorded Confirmed Type gabapentin 100 mg PO TID 04/17/18 08/29/19 History losartan-hydrochlorothiazide 1 tab PO QAM 04/17/18 08/29/19 History naproxen 500 mg PO BID PRN 04/17/18 08/29/19 History acetaminophen [Tylenol] 650 mg PO Q6H PRN 04/09/19 08/29/19 History ibuprofen 200 mg PO QID PRN 04/09/19 08/29/19 History apixaban [Eliquis] 5 mg PO Q12H #60 tab 04/14/19 08/29/19 Rx carvedilol 12.5 mg PO BID 08/03/19 08/29/19 History furosemide 20 mg PO QAM 08/03/19 08/29/19 History glimepiride 2 mg QAM 08/03/19 08/29/19 History hydrochlorothiazide 12.5 mg PO QAM 08/03/19 08/29/19 History linagliptin [Tradjenta] 5 mg PO QAM 08/03/19 08/29/19 History potassium chloride 10 meq PO QAM 08/03/19 08/29/19 History cholecalciferol (vitamin D3) 1,000 unit PO DAILY 08/06/19 08/29/19 History [Vitamin D3] famotidine 40 mg PO BID 08/06/19 08/29/19 History spironolactone 25 mg PO DAILY 08/06/19 08/29/19 History Patient History Medical History A-fib diagnosed 04/2019- on Eliquis/beta daniella Anemia chronic CAD (coronary artery disease) one vessel, non-obstructive CAD per 05/2019 cardiac cath Diabetes mellitus, type 2 NIDDM GERD (gastroesophageal reflux disease) controlled History of asthma controlled Hx of gout Hypertension Morbid obesity Osteoarthritis Osteoporosis Peripheral neuropathy Pulmonary HTN per 07/2019 right heart cath Surgical History History of ankle surgery left ankle/bone spur removal History of repair of rotator cuff left x 2 History of tonsillectomy History of tooth extraction Hx of cardiac cath right heart cath: 07/03/19: PAP are much less compared to what was found of TTE (after commencement of diuretics). RAP 12. RV 48 x 11. PA 46 x 25 with a mean PAP 34. left heart cath: 05/25/19: Mild one vessel CAD (20% pLAD). evidence of prior apical infarction on LVgram and nuclear perfusion scan but no obstructive disease by angiography today (suspected plaque erosion with distal embolization sometime in the past from the plaque noted in the pLAD resulting in an apical infarction). Family History (Updated 08/30/19 @ 19:47 by Gera De La Rosa) Mother Family history of diabetes mellitus Father Family history of diabetes mellitus Myocardial infarction from such ~age 75 Social History (Updated 08/30/19 @ 19:48 by Gera De La Rosa) Preferred Language: Turkmen Communication Ability: Effective Coin Machine Mechanic Required: No Beliefs That Will Affect Care: None marital status: Current Living Situation: Spouse current occupational status: disabled current occupation: previously worked as diesel truck technician other: 1 step-child Feels Safe at Home: Yes Safety Concerns: Feels Safe At This Time Smoking Status: Never smoker Do You Dip or Chew Tobacco: No ; Second Hand Exposure: No ; Hx Alcohol Use: Yes Alcohol type: hard liquor Alcohol Intake Frequency: Rarely Hx Substance Use: No Review of Systems Constitutional: no fever, no chills, no fatigue and no anorexia Eyes: no worsening vision Ear, Nose, Mouth, Throat: no sore throat and no dysphagia Respiratory: no cough, no dyspnea and no dyspnea on exertion Cardiovascular: no chest pain, no dyspnea at rest, no dyspnea on exertion, no orthopnea, no paroxysmal nocturnal dyspnea and no palpitations Gastrointestinal: no abdominal pain, no nausea, no vomiting and no diarrhea/lo ose stools Genitourinary: no difficulty urinating Musculoskeletal: as per Subjective / HPI and + joint pain Integumentary: no rash Neurologic: + numbness (occasional - hands ) Psychiatric: no depression Hematologic / Lymphatic: no easy bleeding Physical Exam Constitutional: + obese; no acute distress and no altered mental status Eyes: PERRL ENMT: external ear and nose normal, oropharynx normal Neck: trachea midline, no thyromegaly Respiratory: normal respiratory effort, lungs clear to auscultation Cardiovascular: Rate/Rhythm: regular rate and + irregularly irregular Heart Sounds: normal S1 and normal S2; no murmur Vessels: posterior tibial pulses present and dorsalis pedis pulses present; no JVD Extremities: + edema (b/l -- 1+ ) Gastrointestinal (Abdomen): normal bowel sounds, soft, nontender, no hepatosplenomegaly Musculoskeletal: b/l knees with ITZ wraps in place as well as drains Skin: no rashes, warm and dry Neurologic: moves all extremities; no focal motor deficits Psychiatric: A+Ox3, euthymic affect Lymphatic: no cervical lymphadenopathy Results & Data Vital Signs (Past 12 Hours) Vital Signs Temp Pulse Pulse Resp BP BP Pulse Ox 08/30/19 08:35 111 H 143/86 H 08/30/19 07:07 36.6 C 91 H 20 135/99 99 08/30/19 03:45 36.8 C 99 H 20 100/69 93 08/29/19 22:55 37.2 C 94 H 20 138/87 94 Laboratory Results Laboratory Results - last 24 hr 08/29/19 08/29/19 08/30/19 20:42 23:56 03:36 WBC RBC Hgb Hct MCV MCH MCHC RDW Std Deviation RDW Coeff of Maribel Plt Count MPV Sodium Potassium Chloride Carbon Dioxide Anion Gap BUN Creatinine Est Cr Clr Drug Dosing Est GFR ( Amer) Est GFR (Non-Af Amer) BUN/Creatinine Ratio Glucose POC Glucose 209 H 153 H 132 H Estimat Average Glucose Hemoglobin A1c Calcium 08/30/19 08/30/19 08/30/19 05:33 05:33 05:33 WBC 14.72 H RBC 4.66 L Hgb 10.1 L Hct 33.6 L MCV 72.1 L MCH 21.7 L MCHC 30.1 L RDW Std Deviation 49.1 H RDW Coeff of Maribel 18.7 H Plt Count 298 MPV 10.8 H Sodium 135 L Potassium 4.0 Chloride 101 Carbon Dioxide 29 Anion Gap 5.0 BUN 32 H Creatinine 1.35 Est Cr Clr Drug Dosing 87.0 Est GFR ( Amer) 66.1 Est GFR (Non-Af Amer) 57.1 BUN/Creatinine Ratio 23.6 H Glucose 158 H POC Glucose Estimat Average Glucose 166 Hemoglobin A1c 7.4 H Calcium 9.2 08/30/19 08/30/19 08/30/19 08:11 12:01 17:19 WBC RBC Hgb Hct MCV MCH MCHC RDW Std Deviation RDW Coeff of Maribel Plt Count MPV Sodium Potassium Chloride Carbon Dioxide Anion Gap BUN Creatinine Est Cr Clr Drug Dosing Est GFR ( Amer) Est GFR (Non-Af Amer) BUN/Creatinine Ratio Glucose POC Glucose 177 H 232 H 188 H Estimat Average Glucose Hemoglobin A1c Calcium PG Care Time/CCT Total # of Minutes Spent Total Time Spent with Patient: Total time spent is greater than 50% in coordination of care (as documented) at patient's floor/unit and/or counseling patient: Coding Level of Care Code 55890 Initial Inpt Care Lvl 3 Diagnoses Bilateral primary osteoarthritis of knee M17.0 Acute blood loss anemia D62 A-fib I48.21 Atrial fibrillation type: permanent CAD (coronary artery disease) I25.10 Coronary Disease-Associated Artery/Lesion type: [place] artery [place] vs. transplanted heart: [place] heart Associated angina: without angina Diabetes mellitus, type 2 E11.40 Diabetes mellitus retirement insulin use: without solid state tester use Diabetes mellitus complication status: with neurologic complications Diabetes mellitus complication detail: with unspecified neuropathy GERD (gastroesophageal reflux disease) K21.9 Esophagitis presence: esophagitis presence not specified Hx of gout Z87.39 Hypertension I10 Hypertension type: essential hypertension Morbid obesity E66.01 Peripheral neuropathy G62.89 Peripheral neuropathy type: polyneuropathy, other Acute kidney injury N17.9 DVT prophylaxis Z29.9 (1) A-fib Atrial fibrillation type: permanent Qualified Code(s): I48.21 - Permanent atrial fibrillation (2) CAD (coronary artery disease) Coronary Disease-Associated Artery/Lesion type: [place] artery [place] vs. transplanted heart: [place] heart Associated angina: without angina Qualified Code(s): I25.10 - Atherosclerotic heart disease of [place] coronary artery without angina pectoris (3) Diabetes mellitus, type 2 Diabetes mellitus retirement insulin use: without solid state tester use Diabetes mellitus complication status: with neurologic complications Diabetes mellitus complication detail: with unspecified neuropathy Qualified Code(s): E11.40 - Type 2 diabetes mellitus with diabetic neuropathy, unspecified (4) GERD (gastroesophageal reflux disease) Esophagitis presence: esophagitis presence not specified Qualified Code(s): K21.9 - Gastro-esophageal reflux disease without esophagitis (5) Hypertension Hypertension type: essential hypertension Qualified Code(s): I10 - Essential (primary) hypertension (6) Peripheral neuropathy Peripheral neuropathy type: polyneuropathy, other Qualified Code(s): G62.89 - Other specified polyneuropathies
[2019-08-30] MEDS ORDERED: INSULIN GLARGINE SOLOSTAR 100 UNITS/ML 3 ML PEN SC STA (09:13)
[2019-08-30] MEDS: CEROVITE ADV FORMULA TAB PO SCH (10:46)
[2019-08-30] MEDS: THIAMINE HCL 100 MG TAB PO SCH (10:46)
[2019-08-30] MEDS: FOLIC ACID 1 MG TAB PO SCH (10:47)
--- NOTE | 2019-08-30 14:38 | Pharmacy Report ---
Pharmacy Glycemic Short Note 2 - Date of Service August 30, 2019 - Glycemic Short BSG Results (Last 24 hours): 08/29/19 08/29/19 08/29/19 17:37 20:42 23:56 Glucose POC Glucose 299 H 209 H 153 H 08/30/19 08/30/19 08/30/19 03:36 05:33 08:11 Glucose 158 H POC Glucose 132 H 177 H 08/30/19 12:01 Glucose POC Glucose 232 H OUTPATIENT ANTIDIABETIC REGIMEN: * Linagliptin 5 mg daily * A1c 6.9% 04/10/19 - updated A1c pending ASSESSMENT: 08/30: * Patient received 75 units of insulin yesterday, of which 40 were NPH * Fasting BSG 158 mg/dL - will add Lantus for this morning and scale for tonight * Lunch time BSGs trending up. Likely seeing effects from steroids still. Will continue same CF/CR ; will loosen later with dinner as anticipate steroids to wear off PLAN FOR INPATIENT GLYCEMIC CONTROL: * Hold outpatient oral diabetes medications * Basal insulin * Lantus 15 units this morning * Lantus HS per scale 0-10-15 units based upon BSG * Bolus insulin * NovoLog per scale ACHS or Q6hrs while NPO * Goal Range: Low 110 mg/dL - High 140 mg/dL * Correction Factor: 20 mg/dL/unit * Nutritional / Prandial insulin per carb ratio of 1 unit per 6 grams CHO consumed
[2019-08-30] MEDS: KETOROLAC TROMETHAMINE 15 MG/ML VIAL IV PRN (19:07)
[2019-08-30] MEDS ORDERED: INSULIN GLARGINE SOLOSTAR 100 UNITS/ML 3 ML PEN SC SCH (21:00)
[2019-08-30] MEDS: SENNA 8.6 MG TAB PO SCH (21:54)
[2019-08-31] MEDS ORDERED: INSULIN ASPART 100 UNITS/ML 3 ML PEN SC SCH
[2019-08-31] MEDS: OXYCODONE HCL IR 5 MG TAB (IMMEDIATE RELEASE) PO PRN ×5 (00:04→23:58)
[2019-08-31] MEDS: KETOROLAC TROMETHAMINE 15 MG/ML VIAL IV PRN ×3 (03:46→19:19)
[2019-08-31] MEDS: ACETAMINOPHEN 500 MG TAB PO SCH ×3 (05:17→20:59)
[2019-08-31 05:31] LABS: Hematocrit (blood only) 30.3 % (42-52); Hemoglobin 9.1 g/dL (14.0-18.0); Mean Corpuscular Hemoglobin 21.8 pg (25-34); Mean Corpuscular Volume 72.7 fL (80-100); Platelet Count 243 K/uL (130-400); RDW Standard Deviation 50.1 fL (36.4-46.3); Red Blood Count 4.17 M/uL (4.7-6.1); White Blood Count 11.64 K/uL (4.8-10.8)
[2019-08-31 05:58] LABS: BUN Creatinine Ratio 22.6 (10-20); Calcium 8.8 mg/dl (8.5-10.1); Creatinine Clr Calc Pharmacy 97.9 ml/min; Est GFR (African American) 76.3; Est GFR (Non-African American) 65.8; Potassium 3.8 mmol/L (3.5-5.1)
[2019-08-31 06:03] LABS: Ferritin 19.1 ng/ml (8-388)
[2019-08-31] MEDS: HYDROmorphone INJ 0.5 MG/0.5 ML SYR IV PRN (07:42)
--- NOTE | 2019-08-31 08:00 | Orthopedic Progress Note ---
Date of Service August 31, 2019 Assessment & Plan (1) Bilateral primary osteoarthritis of knee: Postop day 2 status post bilateral total knee arthroplasties. Pain control issues through the night. PT/OT protocols. Weightbearing as tolerated. DVT prophylaxis with Eliquis twice daily, SCDs, THIERNO turk. Pain management with hydromorphone, oxycodone, Tylenol, Toradol. --> Will add MS Cruz to his pain regimen. Re evaluate pain control this afternoon. Mild leukocytosis-asymptomatic presently. Post likely secondary due to preoperative steroids and surgical stress. Improved. Discharge planning-patient is planning for home health services upon discharge. Subjective Postop day 2 status post bilateral total knee arthroplasties. Patient is currently finishing up doing some exercises with nursing. He states that he had a rough night with pain control and was using IV pain medications regularly. Morning he is still having some pain. He denies any shortness of breath, chest pain, lightheadedness. He states he was able to do some PT yesterday and ambulate the hallway, however this increases his pain. He feels his pain is not controlled at this time. Physical Exam Physical Exam: [place] dressings are clean, dry, and intact bilaterally. Calves are soft with mild tenderness. No swelling of the ankles/feet. Shital's exam negative. Neurovascular is intact. He has good dorsiflexion and plantarflexion of both feet and ankles. Drains have been removed. Results & Data ([facility]) Vital Signs (Past 12 Hours) Vital Signs Temp Pulse Resp BP Pulse Ox 08/30/19 23:14 37.0 C 90 18 99/62 L 98 Laboratory Results Laboratory Results WBC 11.64 K/uL (4.8-10.8) H 08/31/19 05:21 RBC 4.17 M/uL (4.7-6.1) L 08/31/19 05:21 Hgb 9.1 g/dL (14.0-18.0) L 08/31/19 05:21 Hct 30.3 % (42-52) L 08/31/19 05:21 MCV 72.7 fL (80-100) L 08/31/19 05:21 MCH 21.8 pg (25-34) L 08/31/19 05:21 MCHC 30.0 g/dL (32-36) L 08/31/19 05:21 RDW Std Deviation 50.1 fL (36.4-46.3) H 08/31/19 05:21 RDW Coeff of Maribel 19.0 % (11.5-14.5) H 08/31/19 05:21 Plt Count 243 K/uL (130-400) 08/31/19 05:21 MPV 10.0 fL (7.4-10.4) 08/31/19 05:21 PT 11.5 Seconds (9.0-12.0) 08/06/19 12:31 INR 1.1 (0.9-1.1) 08/06/19 12:31 APTT 31.7 Seconds (21.0-31.0) H 08/06/19 12:31 PTT Ratio 1.2 08/06/19 12:31 Sodium 134 mmol/L (136-145) L 08/31/19 05:21 Potassium 3.8 mmol/L (3.5-5.1) 08/31/19 05:21 Chloride 102 mmol/L (98-107) 08/31/19 05:21 Carbon Dioxide 30 mmol/L (21-32) 08/31/19 05:21 Anion Gap 2.0 (3-11) L 08/31/19 05:21 BUN 27 mg/dl (7-18) H 08/31/19 05:21 Creatinine 1.20 mg/dl (0.6-1.4) 08/31/19 05:21 Est Cr Clr Drug Dosing 97.9 ml/min 08/31/19 05:21 Est GFR ( Amer) 76.3 08/31/19 05:21 Est GFR (Non-Af Amer) 65.8 08/31/19 05:21 BUN/Creatinine Ratio 22.6 (10-20) H 08/31/19 05:21 Glucose 136 mg/dl (70-99) H 08/31/19 05:21 POC Glucose 169 mg/dl (70-99) H 08/31/19 00:00 Estimat Average Glucose 166 mg/dl 08/30/19 05:33 Hemoglobin A1c 7.4 % (4.5-5.6) H 08/30/19 05:33 Calcium 8.8 mg/dl (8.5-10.1) 08/31/19 05:21 Iron 11 mcg/dl (35-175) L 08/31/19 05:21 Transferrin 214 mg/dl (200-360) 08/31/19 05:21 Transferrin % Sat 4 % (20-50) L 08/31/19 05:21 Ferritin 19.1 ng/ml (8-388) 08/31/19 05:21 Blood Type O Positive 08/06/19 12:31 Antibody Screen NEGATIVE 08/06/19 12:31
[2019-08-31] MEDS: CEROVITE ADV FORMULA TAB PO SCH (08:30)
[2019-08-31] MEDS: FERROUS GLUCONATE 324 MG TAB PO SCH ×2 (08:30→17:33)
[2019-08-31] MEDS: MULTIVITAMIN TAB PO SCH (08:30)
[2019-08-31] MEDS: FAMOTIDINE 40 MG TABLET PO SCH ×2 (08:30→20:58)
[2019-08-31] MEDS: carvediloL 12.5 MG TAB PO SCH ×2 (08:30→20:59)
[2019-08-31] MEDS: MoRPHine SULFATE CR 15 MG TABCR PO SCH ×2 (08:30→20:58)
[2019-08-31] MEDS: GABAPENTIN 100 MG CAP PO SCH ×3 (08:30→20:58)
[2019-08-31] MEDS: THIAMINE HCL 100 MG TAB PO SCH (08:30)
[2019-08-31] MEDS: SPIRONOLACTONE 25 MG TAB PO SCH (08:30)
[2019-08-31] MEDS: DOCUSATE SODIUM 100 MG CAP PO SCH ×2 (08:30→20:58)
[2019-08-31] MEDS: FOLIC ACID 1 MG TAB PO SCH (08:30)
[2019-08-31] MEDS: CHOLECALCIFEROL 1,000 UNITS 25 MCG TAB PO SCH (08:30)
[2019-08-31] MEDS: APIXABAN 5 MG TABLET PO SCH ×2 (08:30→20:58)
[2019-08-31] MEDS: POTASSIUM CHLORIDE 10 MEQ TABCR PO SCH (08:31)
[2019-08-31] MEDS: INSULIN ASPART 100 UNITS/ML 3 ML PEN SC SCH ×4 (08:35→21:02)
[2019-08-31] MEDS: INSULIN GLARGINE SOLOSTAR 100 UNITS/ML 3 ML PEN SC SCH ×2 (08:35→21:03)
[2019-08-31] MEDS: MAGNESIUM HYDROXIDE SUSP 30 ML UDC PO PRN ×2 (08:49→19:19)
--- NOTE | 2019-08-31 09:01 | Pharmacy Report ---
Pharmacy Glycemic Short Note 2 - Date of Service August 31, 2019 - Glycemic Short BSG Results (Last 24 hours): 08/30/19 08/30/19 08/30/19 12:01 17:19 20:37 Glucose POC Glucose 232 H 188 H 132 H 08/31/19 08/31/19 08/31/19 00:00 05:21 08:00 Glucose 136 H POC Glucose 169 H 158 H OUTPATIENT ANTIDIABETIC REGIMEN: * Linagliptin 5 mg daily, glimepiride 2 mg daily * A1c 6.9% 04/10/19 * A1C 7.4 08/30/19 ASSESSMENT: 08/31: * Patient received total of 71 units of insulin yesterday, of which 15 were basal insulin * Fasting BSG 136 mg/dL - will continue with 15 units of basal this morning and scale for tonight for Lantus * BSGs trending down yesterday due to steroids wearing off - will loosen CR this morning 08/30: * Patient received 75 units of insulin yesterday, of which 40 were NPH * Fasting BSG 158 mg/dL - will add Lantus for this morning and scale for tonight * Lunch time BSGs trending up. Likely seeing effects from steroids still. Will continue same CF/CR ; will loosen later with dinner as anticipate steroids to wear off PLAN FOR INPATIENT GLYCEMIC CONTROL: * Hold outpatient oral diabetes medications * Basal insulin * Lantus 15 units this morning * Lantus HS per scale 0-5-10 units based upon BSG * Bolus insulin * NovoLog per scale ACHS or Q6hrs while NPO * Goal Range: Low 110 mg/dL - High 140 mg/dL * Correction Factor: 20 mg/dL/unit * Nutritional / Prandial insulin per carb ratio of 1 unit per 6 grams CHO consumed PLAN FOR DISCHARGE: * A1C= 7.4% - A reasonable A1c goal for adults is A1C less than 7% * A1c close to goal would recommend continuation of home diabetic medications on discharge and encourage healthy lifestyle (diet, exercise) * life educator consulted as patient in need of test strips - would recommend continued monitoring of blood sugars
[2019-08-31] MEDS: SENNA 8.6 MG TAB PO SCH (20:58)
[2019-08-31] MEDS ORDERED: INSULIN GLARGINE SOLOSTAR 100 UNITS/ML 3 ML PEN SC SCH (21:00)
--- NOTE | 2019-08-31 21:00 | Hospitalist Progress Note ---
Date of Service August 31, 2019 Assessment & Plan (1) Bilateral primary osteoarthritis of knee: s/p b/l TKR by Dr Robertson, POD #2. Defer pain management, DVT proph, disposition, etc to orthopedics. (2) Acute blood loss anemia: mild-moderate. Hb 9.1 today. has evidence of chronic iron deficiency (see below). cont Fe supplementation. CBC in am. (3) Iron deficiency: iron indices all c/w severe iron deficiency. worrisome for chronic GI blood loss - especially with chronic GERD complaints, chronic eliquis use, etc. I recommended f/u with GI post-d/c for consideration of endoscopies. Cont Fe supplementation. Stop H2 daniella; change to PPI once daily. I added the above recommendations to d/c instructions. I eprescribed iron and PPI to his pharmacy for him. (4) A-fib: Cont coreg for rate control. If rate control proves difficult consider changing to metoprolol in katherin. Cont eliquis for anticoagulation. (5) CAD (coronary artery disease): Minimal nonobstructive CAD (single vessel) on recent heart cath. No ischemic symptoms perioperatively. Cont BB. Really should be on statin therapy chronically. (6) Diabetes mellitus, type 2: Uncontrolled but improving. 2nd to perioperative stress. Pharmacy managing - appreciate their assistance. (7) GERD (gastroesophageal reflux disease): stop H2 daniella add PPI -- see above in "iron deficiency" (8) Hx of gout: with his gout history would suggest not using HCTZ chronically. no flares at this time. (9) Hypertension: intermittently low BPs while here. likely compounded by acute blood loss anemia. HOLD aldactone HOLD HCTZ/ARB follow carefully. cont coreg. (10) Morbid obesity: BMI 41 (11) Peripheral neuropathy: 2nd DM. cont gabapentin. (12) Acute kidney injury: peak Cr 1.3 today 1.2 pre-op Cr was 1 cont to hold ARB-HCTZ will also hold aldactone repeat BMP am (13) DVT prophylaxis: eliquis BID ?heavy alcohol intake periodically -- added MVI, thiamine, folate. repeat labs in am will cont to follow Subjective main complaint is that of b/l knee pain still requiring a considerable amount of IV pain meds passing flatus had very small stool stated that he thinks he was told once that he had low iron he has never had upper or lower endoscopy denies ever seeing melena but has had blood per rectum from hemorrhoids Review of Systems Constitutional: no anorexia Respiratory: no cough and no dyspnea Cardiovascular: no chest pain Gastrointestinal: no abdominal pain Neurologic: no dizziness Physical Exam Constitutional: + obese; no acute distress and no altered mental status ENMT: external ear and nose normal, oropharynx normal Respiratory: normal respiratory effort, lungs clear to auscultation Cardiovascular: Rate/Rhythm: regular rate and + irregularly irregular Heart Sounds: normal S1 and normal S2; no murmur Vessels: posterior tibial pulses present and dorsalis pedis pulses present; no JVD Extremities: + edema (b/l -- 1+ ) Gastrointestinal (Abdomen): normal bowel sounds, soft, nontender, no hepatosplenomegaly Psychiatric: A+Ox3, euthymic affect Results & Data ([facility]) Vital Signs (Past 12 Hours) Vital Signs Temp Pulse Resp BP Pulse Ox 08/31/19 20:54 97 H 94/63 L 08/31/19 16:16 37.1 C 107 H 16 97/59 L 96 Laboratory Results Laboratory Results - last 24 hr 08/31/19 08/31/19 08/31/19 00:00 05:21 05:21 WBC 11.64 H RBC 4.17 L Hgb 9.1 L Hct 30.3 L MCV 72.7 L MCH 21.8 L MCHC 30.0 L RDW Std Deviation 50.1 H RDW Coeff of Maribel 19.0 H Plt Count 243 MPV 10.0 Sodium 134 L Potassium 3.8 Chloride 102 Carbon Dioxide 30 Anion Gap 2.0 L BUN 27 H Creatinine 1.20 Est Cr Clr Drug Dosing 97.9 Est GFR ( Amer) 76.3 Est GFR (Non-Af Amer) 65.8 BUN/Creatinine Ratio 22.6 H Glucose 136 H POC Glucose 169 H Calcium 8.8 Iron 11 L Transferrin 214 Transferrin % Sat 4 L Ferritin 19.1 08/31/19 08/31/19 08/31/19 08:00 11:59 17:18 WBC RBC Hgb Hct MCV MCH MCHC RDW Std Deviation RDW Coeff of Maribel Plt Count MPV Sodium Potassium Chloride Carbon Dioxide Anion Gap BUN Creatinine Est Cr Clr Drug Dosing Est GFR ( Amer) Est GFR (Non-Af Amer) BUN/Creatinine Ratio Glucose POC Glucose 158 H 209 H 171 H Calcium Iron Transferrin Transferrin % Sat Ferritin 08/31/19 20:37 WBC RBC Hgb Hct MCV MCH MCHC RDW Std Deviation RDW Coeff of Maribel Plt Count MPV Sodium Potassium Chloride Carbon Dioxide Anion Gap BUN Creatinine Est Cr Clr Drug Dosing Est GFR ( Amer) Est GFR (Non-Af Amer) BUN/Creatinine Ratio Glucose POC Glucose 154 H Calcium Iron Transferrin Transferrin % Sat Ferritin PG Care Time/CCT Total # of Minutes Spent Total Time Spent with Patient: Total time spent is greater than 50% in coordination of care (as documented) at patient's floor/unit and/or counseling patient: Coding Level of Care Code 31537 Subseq Hosp Care Lvl 3 Diagnoses Bilateral primary osteoarthritis of knee M17.0 Acute blood loss anemia D62 Iron deficiency E61.1 A-fib I48.21 Atrial fibrillation type: permanent CAD (coronary artery disease) I25.10 Associated angina: without angina Coronary Disease-Associated Artery/Lesion type: [place] artery [place] vs. transplanted heart: [place] heart Diabetes mellitus, type 2 E11.40 Diabetes mellitus complication detail: with unspecified neuropathy Diabetes mellitus complication status: with neurologic complications Diabetes mellitus fci insulin use: without intermodal truck driver use GERD (gastroesophageal reflux disease) K21.9 Esophagitis presence: esophagitis presence not specified Hx of gout Z87.39 Hypertension I10 Hypertension type: essential hypertension Morbid obesity E66.01 Peripheral neuropathy G62.89 Peripheral neuropathy type: polyneuropathy, other Acute kidney injury N17.9 DVT prophylaxis Z29.9 (1) Diabetes mellitus, type 2 Diabetes mellitus complication detail: with unspecified neuropathy Diabetes mellitus complication status: with neurologic complications Diabetes mellitus intermodal truck driver insulin use: without intermodal truck driver use Qualified Code(s): E11.40 - Type 2 diabetes mellitus with diabetic neuropathy, unspecified (2) CAD (coronary artery disease) Associated angina: without angina Coronary Disease-Associated Artery/Lesion type: [place] artery [place] vs. transplanted heart: [place] heart Qualified Code(s): I25.10 - Atherosclerotic heart disease of [place] coronary artery without angina pectoris (3) A-fib Atrial fibrillation type: permanent Qualified Code(s): I48.21 - Permanent atrial fibrillation (4) Peripheral neuropathy Peripheral neuropathy type: polyneuropathy, other Qualified Code(s): G62.89 - Other specified polyneuropathies (5) GERD (gastroesophageal reflux disease) Esophagitis presence: esophagitis presence not specified Qualified Code(s): K21.9 - Gastro-esophageal reflux disease without esophagitis (6) Hypertension Hypertension type: essential hypertension Qualified Code(s): I10 - Essential (primary) hypertension
[2019-09-01] MEDS: ACETAMINOPHEN 500 MG TAB PO SCH ×3 (05:28→21:09)
[2019-09-01] MEDS: OXYCODONE HCL IR 5 MG TAB (IMMEDIATE RELEASE) PO PRN ×4 (05:28→22:27)
[2019-09-01 05:38] LABS: Basophils # (auto) 0.08 K/uL (0-0.2); Basophils % (auto) 0.6 %; Eosinophils # (auto) 0.41 K/uL (0-0.5); Eosinophils % (auto) 3.3 %; Hemoglobin 9.3 g/dL (14.0-18.0); Immature Granulocytes # (auto) 0.06 K/uL (0.00-0.02); Immature Granulocytes % (auto) 0.5 %; Lymphocytes # (auto) 1.53 K/uL (1.2-3.4); Lymphocytes % (auto) 12.3 %; Mean Corpuscular Hemoglobin 21.9 pg (25-34); Mean Corpuscular Volume 73.1 fL (80-100); Mean Platelet Volume 10.5 fL (7.4-10.4); Monocytes # (auto) 1.68 K/uL (0.11-0.59); Monocytes % (auto) 13.6 %; Neutrophils # (auto) 8.63 K/uL (1.4-6.5); Neutrophils % (auto) 69.7 %; Platelet Count 268 K/uL (130-400); RDW Coefficient of Variation 19.4 % (11.5-14.5); RDW Standard Deviation 51.3 fL (36.4-46.3); Red Blood Count 4.24 M/uL (4.7-6.1); White Blood Count 12.39 K/uL (4.8-10.8)
[2019-09-01 06:03] LABS: Giant Platelets 1+
[2019-09-01 06:21] LABS: BUN Creatinine Ratio 21.8 (10-20); Calcium 9.4 mg/dl (8.5-10.1); Creatinine Clr Calc Pharmacy 99.6 ml/min; Est GFR (African American) 77.8; Est GFR (Non-African American) 67.1; Potassium 4.4 mmol/L (3.5-5.1)
[2019-09-01] MEDS: PANTOprazole 40 MG TAB PO SCH (08:41)
[2019-09-01] MEDS: CHOLECALCIFEROL 1,000 UNITS 25 MCG TAB PO SCH (08:41)
[2019-09-01] MEDS: GABAPENTIN 100 MG CAP PO SCH ×3 (08:41→20:27)
[2019-09-01] MEDS: MoRPHine SULFATE CR 15 MG TABCR PO SCH ×2 (08:41→20:25)
[2019-09-01] MEDS: APIXABAN 5 MG TABLET PO SCH ×2 (08:41→20:26)
[2019-09-01] MEDS: CEROVITE ADV FORMULA TAB PO SCH (08:42)
[2019-09-01] MEDS: DOCUSATE SODIUM 100 MG CAP PO SCH ×2 (08:42→20:25)
[2019-09-01] MEDS: POTASSIUM CHLORIDE 10 MEQ TABCR PO SCH (08:42)
[2019-09-01] MEDS: FERROUS GLUCONATE 324 MG TAB PO SCH ×2 (08:42→17:47)
[2019-09-01] MEDS: MULTIVITAMIN TAB PO SCH (08:42)
[2019-09-01] MEDS: FOLIC ACID 1 MG TAB PO SCH (08:42)
[2019-09-01] MEDS: carvediloL 12.5 MG TAB PO SCH ×2 (08:42→21:08)
[2019-09-01] MEDS: THIAMINE HCL 100 MG TAB PO SCH (08:42)
[2019-09-01] MEDS: INSULIN ASPART 100 UNITS/ML 3 ML PEN SC SCH ×4 (08:43→21:11)
[2019-09-01] MEDS: INSULIN GLARGINE SOLOSTAR 100 UNITS/ML 3 ML PEN SC SCH ×2 (08:44→21:12)
--- NOTE | 2019-09-01 09:24 | Orthopedic Progress Note ---
Date of Service September 01, 2019 Assessment & Plan (1) Bilateral primary osteoarthritis of knee: Postop day 3 status post bilateral total knee arthroplasties. Pain control issues through the night again but improving PT/OT protocols. Weightbearing as tolerated. DVT prophylaxis with Eliquis twice daily, SCDs, THIERNO turk. Pain management with hydromorphone, oxycodone, Tylenol, Toradol. --> added MS Contin to his pain regimen yesterday Mild leukocytosis-asymptomatic presently. Post likely secondary due to preoperative steroids and surgical stress. Improved. Discharge planning-patient is planning for home health services upon discharge. Subjective Post op day #3. he notes pain today. Seems to be better overall but still having pain. No CP, SOB, dizziness Physical Exam Physical Exam: Toes mobile, NVI. Calves soft, non tender. Dressing in place. Results & Data ([facility]) Vital Signs (Past 12 Hours) Vital Signs Temp Pulse Resp BP Pulse Ox 09/01/19 07:12 37.3 C 91 H 18 107/68 97 08/31/19 23:10 37.1 C 95 H 16 105/68 96
--- NOTE | 2019-09-01 11:27 | Hospitalist Progress Note ---
Date of Service September 01, 2019 Assessment & Plan (1) Bilateral primary osteoarthritis of knee: s/p bilat TKR by Dr Robertson, POD 3 oxycontin 20 bid (just for 5 or so days) + prn miralax discharge per ortho (2) Acute blood loss anemia: acute blood loss anemia on chronic iron deficiency anemia Hgb 11 --> 9.1 cont Fe supplementation. (3) Iron deficiency: iron indices all c/w severe iron deficiency. worrisome for chronic GI blood loss - especially with chronic GERD complaints, chronic eliquis use, etc. I recommended f/u with GI post-d/c for consideration of endoscopies. Cont Fe supplementation. Stop H2 daniella; change to PPI once daily. recommendations to d/c instructions. eprescribed iron and PPI to his pharmacy for him. (4) A-fib: Cont coreg for rate control. If rate control proves difficult consider changing to metoprolol in katherin. Cont eliquis for anticoagulation. (5) CAD (coronary artery disease): Minimal nonobstructive CAD (single vessel) on recent heart cath. No ischemic symptoms perioperatively. Cont BB. consider asa 81 daily consider statin after checking FLP. he claims lipids were good before so statin was stopped (6) Diabetes mellitus, type 2: fair control with a1c=7.4 uncontrolled now d/t perioperative stress. Pharmacy managing - appreciate their assistance. (7) GERD (gastroesophageal reflux disease): stop H2 daniella add PPI -- see above in "iron deficiency" (8) Hx of gout: with his gout history would suggest not using HCTZ chronically. no flares at this time. (9) Hypertension: intermittently low BPs while here. likely compounded by acute blood loss anemia. HOLD aldactone HOLD HCTZ/ARB follow carefully. cont coreg. (10) Morbid obesity: BMI 41 would benefit from senior care weight loss efforts (11) Peripheral neuropathy: 2nd DM. cont gabapentin. (12) Acute kidney injury: ruled out for LAMBERT (13) DVT prophylaxis: eliquis BID possible excessive heavy alcohol intake periodically -- added MVI, thiamine, folate. will cont to follow Subjective POD3 bilat TKA for DJD c/o much pain and writhing in pain despite having received oxycodone 10mg 1 hr prior to my encounter. receiving about 50mg per day. d/w ortho and recommending oxycontin 20 bid + short acting prn. also adding miralax for bowel regimen. no other complaints. denies CP, SOB, N/V. Review of Systems Review of Systems: Positive ROS: as in Subjective Constitutional: no fevers HENT: Negative for sore throat. Respiratory: Negative for cough and SOB. Cardiovascular: Negative for chest pain and palpitations. Gastrointestinal: Negative for abdominal pain, diarrhea, nausea and vomiting. Genitourinary: Negative for dysuria. Skin: Negative for itching and rash. Neurological: Negative for focal weakness and headaches. Physical Exam 2 Physical Exam: Abnormal Exam: bilat knees are wrapped Constitutional: writhing in pain HENT: Mouth/Throat: Oropharynx is clear and moist. Eyes: Conjunctivae are normal. No scleral icterus. Cardiovascular: Normal RRR and normal heart sounds. No murmur heard. no gallop and no friction rub. Pulmonary/Chest: Effort normal and breath sounds normal. No respiratory distress. no wheezing no rales. Abdominal: Soft. Bowel sounds are normal. no distension. There is no tenderness. Neurological: alert. bilat legs are neurovascularly intact Psychiatric: writhing in pain Results & Data ([facility]) Vital Signs (Past 12 Hours) Vital Signs Temp Pulse Resp BP Pulse Ox 09/01/19 07:12 37.3 C 91 H 18 107/68 97 Laboratory Results WBC=12.3 hgb=9.3 npy=773 creat=1.18 BUN=26 Eh=395 a1c=7.4 Coding Level of Care Code 40009 Subseq Hosp Care Lvl 2 Diagnoses Bilateral primary osteoarthritis of knee M17.0 Acute blood loss anemia D62 Iron deficiency E61.1 A-fib I48.21 Atrial fibrillation type: permanent CAD (coronary artery disease) I25.10 Associated angina: without angina Coronary Disease-Associated Artery/Lesion type: [place] artery [place] vs. transplanted heart: [place] heart Diabetes mellitus, type 2 E11.40 Diabetes mellitus complication detail: with unspecified neuropathy Diabetes mellitus complication status: with neurologic complications Diabetes mellitus terminal system operator insulin use: without terminal system operator use GERD (gastroesophageal reflux disease) K21.9 Esophagitis presence: esophagitis presence not specified Hx of gout Z87.39 Hypertension I10 Hypertension type: essential hypertension Morbid obesity E66.01 Peripheral neuropathy G62.89 Peripheral neuropathy type: polyneuropathy, other Acute kidney injury N17.9 DVT prophylaxis Z29.9 (1) Diabetes mellitus, type 2 Diabetes mellitus complication detail: with unspecified neuropathy Diabetes mellitus complication status: with neurologic complications Diabetes mellitus senior care insulin use: without terminal system operator use Qualified Code(s): E11.40 - Type 2 diabetes mellitus with diabetic neuropathy, unspecified (2) CAD (coronary artery disease) Associated angina: without angina Coronary Disease-Associated Artery/Lesion type: [place] artery [place] vs. transplanted heart: [place] heart Qualified Code(s): I25.10 - Atherosclerotic heart disease of [place] coronary artery without angina pectoris (3) A-fib Atrial fibrillation type: permanent Qualified Code(s): I48.21 - Permanent atrial fibrillation (4) Peripheral neuropathy Peripheral neuropathy type: polyneuropathy, other Qualified Code(s): G62.89 - Other specified polyneuropathies (5) GERD (gastroesophageal reflux disease) Esophagitis presence: esophagitis presence not specified Qualified Code(s): K21.9 - Gastro-esophageal reflux disease without esophagitis (6) Hypertension Hypertension type: essential hypertension Qualified Code(s): I10 - Essential (primary) hypertension
[2019-09-01] MEDS: OXYCODONE HCL 20 MG TABCR (OXYCONTIN) PO SCH (13:12)
[2019-09-01] MEDS: HYDROmorphone INJ 0.5 MG/0.5 ML SYR IV PRN (15:10)
[2019-09-01] MEDS: SENNA 8.6 MG TAB PO SCH (20:26)
[2019-09-01] MEDS: POLYETHYLENE (MIRALAX) 17 GM PACK PO SCH (21:08)
[2019-09-02] MEDS: OXYCODONE HCL 20 MG TABCR (OXYCONTIN) PO SCH ×2 (01:07→12:36)
[2019-09-02 05:14] LABS: Basophils # (auto) 0.06 K/uL (0-0.2); Basophils % (auto) 0.5 %; Eosinophils # (auto) 0.68 K/uL (0-0.5); Eosinophils % (auto) 5.5 %; Hematocrit (blood only) 30.7 % (42-52); Hemoglobin 9.1 g/dL (14.0-18.0); Immature Granulocytes # (auto) 0.06 K/uL (0.00-0.02); Immature Granulocytes % (auto) 0.5 %; Lymphocytes # (auto) 2.33 K/uL (1.2-3.4); Lymphocytes % (auto) 18.9 %; Mean Corpuscular Hemoglobin 21.8 pg (25-34); Mean Corpuscular Hgb Conc 29.6 g/dL (32-36); Mean Corpuscular Volume 73.6 fL (80-100); Mean Platelet Volume 10.3 fL (7.4-10.4); Monocytes # (auto) 1.84 K/uL (0.11-0.59); Monocytes % (auto) 14.9 %; Neutrophils # (auto) 7.37 K/uL (1.4-6.5); Neutrophils % (auto) 59.7 %; Platelet Count 312 K/uL (130-400); RDW Coefficient of Variation 19.5 % (11.5-14.5); Red Blood Count 4.17 M/uL (4.7-6.1); White Blood Count 12.34 K/uL (4.8-10.8)
[2019-09-02] MEDS: ACETAMINOPHEN 500 MG TAB PO SCH ×3 (05:31→20:58)
[2019-09-02 05:33] LABS: Hypochromasia Present
[2019-09-02] MEDS: OXYCODONE HCL IR 5 MG TAB (IMMEDIATE RELEASE) PO PRN ×3 (06:09→16:21)
[2019-09-02] MEDS: KETOROLAC TROMETHAMINE 15 MG/ML VIAL IV PRN ×2 (07:32→15:45)
[2019-09-02] MEDS: DOCUSATE SODIUM 100 MG CAP PO SCH ×2 (08:27→20:57)
[2019-09-02] MEDS: THIAMINE HCL 100 MG TAB PO SCH (08:27)
[2019-09-02] MEDS: GABAPENTIN 100 MG CAP PO SCH ×3 (08:27→20:57)
[2019-09-02] MEDS: FERROUS GLUCONATE 324 MG TAB PO SCH ×2 (08:27→17:48)
[2019-09-02] MEDS: APIXABAN 5 MG TABLET PO SCH ×2 (08:27→20:55)
[2019-09-02] MEDS: PANTOprazole 40 MG TAB PO SCH (08:28)
[2019-09-02] MEDS: CHOLECALCIFEROL 1,000 UNITS 25 MCG TAB PO SCH (08:28)
[2019-09-02] MEDS: CEROVITE ADV FORMULA TAB PO SCH (08:28)
[2019-09-02] MEDS: MoRPHine SULFATE CR 15 MG TABCR PO SCH ×2 (08:28→20:54)
[2019-09-02] MEDS: POTASSIUM CHLORIDE 10 MEQ TABCR PO SCH (08:28)
[2019-09-02] MEDS: carvediloL 12.5 MG TAB PO SCH ×2 (08:29→20:57)
[2019-09-02] MEDS: FOLIC ACID 1 MG TAB PO SCH (08:29)
[2019-09-02] MEDS: INSULIN ASPART 100 UNITS/ML 3 ML PEN SC SCH ×4 (08:29→20:49)
[2019-09-02] MEDS: INSULIN GLARGINE SOLOSTAR 100 UNITS/ML 3 ML PEN SC SCH ×2 (08:30→20:51)
[2019-09-02] MEDS: POLYETHYLENE (MIRALAX) 17 GM PACK PO SCH ×2 (08:31→20:55)
--- NOTE | 2019-09-02 09:29 | Orthopedic Progress Note ---
Date of Service September 02, 2019 Assessment & Plan (1) Bilateral primary osteoarthritis of knee: Postop day 4 status post bilateral total knee arthroplasties. PT/OT protocols. Weightbearing as tolerated. DVT prophylaxis with Eliquis twice daily, SCDs, THIERNO turk. Pain management addressed with patient, patient currently comfortable. Mild leukocytosis-asymptomatic presently. Post likely secondary due to preoperative steroids and surgical stress. Improved. Discharge planning-patient is planning for home health services upon discharge, hopefully tomorrow. Subjective Patient resting comfortably in bed eating breakfast while Dr. Godinez examining and talking with patient. Patient concerned about his pain and pain medications. Seems to be under control at this time but he is aware that we will need to decrease medication in order to discharge. Denies CP, SOB, dizziness. Physical Exam Physical Exam: Toes mobile, NVI. Calves soft, non tender. Dressing in place. Silverlon in place Results & Data ([facility]) Vital Signs (Past 12 Hours) Vital Signs Temp Pulse Pulse Resp BP BP Pulse Ox 09/02/19 06:04 36.6 C 108 H 18 100/67 94 09/01/19 23:05 36.8 C 106 H 18 144/86 H 95
--- NOTE | 2019-09-02 13:37 | Hospitalist Progress Note ---
Date of Service September 02, 2019 Assessment & Plan (1) Bilateral primary osteoarthritis of knee: s/p bilat TKR by Dr Robertson, POD 3 oxycontin 20 bid (just for 5 or so days) + prn oxy IR miralax discharge per ortho (2) Acute blood loss anemia: acute blood loss anemia on chronic iron deficiency anemia Hgb 11 --> 9.1 cont Fe supplementation. (3) Iron deficiency: iron indices all c/w severe iron deficiency. worrisome for chronic GI blood loss - especially with chronic GERD complaints, chronic eliquis use, etc. I recommended f/u with GI post-d/c for consideration of endoscopies. Cont Fe supplementation. Stop H2 daniella; change to PPI once daily. recommendations to d/c instructions. eprescribed iron and PPI to his pharmacy for him. (4) A-fib: Cont coreg for rate control. If rate control proves difficult consider changing to metoprolol in katherin. Cont eliquis for anticoagulation. (5) CAD (coronary artery disease): Minimal nonobstructive CAD (single vessel) on recent heart cath. No ischemic symptoms perioperatively. Cont BB. consider asa 81 daily consider statin after checking FLP. he claims lipids were good before so statin was stopped (6) Diabetes mellitus, type 2: fair control with a1c=7.4 uncontrolled now d/t perioperative stress. Pharmacy managing - appreciate their assistance. (7) GERD (gastroesophageal reflux disease): stop H2 daniella add PPI -- see above in "iron deficiency" (8) Hx of gout: with his gout history would suggest not using HCTZ chronically. no flares at this time. (9) Hypertension: intermittently low BPs while here. likely compounded by acute blood loss anemia. resume ARB HOLDing aldactone and HCTZ follow carefully. cont coreg. (10) Morbid obesity: BMI 41 would benefit from residential weight loss efforts (11) Peripheral neuropathy: 2nd DM. cont gabapentin. (12) Acute kidney injury: ruled out for LAMBERT (13) DVT prophylaxis: eliquis BID possible excessive heavy alcohol intake periodically -- added MVI, thiamine, f olate. will cont to follow Subjective pain under much better control with oxycontin 20 bid and prn oxycodone. was hoping he would be taking less oxycodone since starting the oxycontin, but he is still taking about 40mg total of the short acting. however, his pain is under good control now and no excessive sedation. he denies current prior addiction issues. some notes suggest that there may have been excess alcohol but pt denies. patient is advised that in about 1 week, his opiate doses will need to be titrated down. he does have constipation. No fevers, CP, SOB, abd pain N/V. Review of Systems Review of Systems: Positive ROS: as in Subjective Constitutional: no fevers HENT: Negative for sore throat. Respiratory: Negative for cough and SOB. Cardiovascular: Negative for chest pain and palpitations. Gastrointestinal: Negative for abdominal pain, diarrhea, nausea and vomiting. Genitourinary: Negative for dysuria. Skin: Negative for itching and rash. Neurological: Negative for focal weakness and headaches. Musculoskeletal: as per Subjective / HPI and + joint pain Physical Exam Physical Exam: Abnormal Exam: bilat knees are wrapped Constitutional: writhing in pain HENT: Mouth/Throat: Oropharynx is clear and moist. Eyes: Conjunctivae are normal. No scleral icterus. Cardiovascular: Normal RRR and normal heart sounds. No murmur heard. no gallop and no friction rub. Pulmonary/Chest: Effort normal and breath sounds normal. No respiratory distress. no wheezing no rales. Abdominal: Soft. Bowel sounds are normal. no distension. There is no tenderness. Neurological: alert. bilat legs are neurovascularly intact Psychiatric: writhing in pain Results & Data ([facility]) Vital Signs (Past 12 Hours) Vital Signs Temp Pulse Resp BP Pulse Ox 09/02/19 06:04 36.6 C 108 H 18 100/67 94 Coding Level of Care Code 44161 Subseq Hosp Care Lvl 1 Diagnoses Bilateral primary osteoarthritis of knee M17.0 Acute blood loss anemia D62 Iron deficiency E61.1 A-fib I48.21 Atrial fibrillation type: permanent CAD (coronary artery disease) I25.10 Associated angina: without angina Coronary Disease-Associated Artery/Lesion type: [place] artery [place] vs. transplanted heart: [place] heart Diabetes mellitus, type 2 E11.40 Diabetes mellitus complication detail: with unspecified neuropathy Diabetes mellitus complication status: with neurologic complications Diabetes mellitus residential insulin use: without residential use GERD (gastroesophageal reflux disease) K21.9 Esophagitis presence: esophagitis presence not specified Hx of gout Z87.39 Hypertension I10 Hypertension type: essential hypertension Morbid obesity E66.01 Peripheral neuropathy G62.89 Peripheral neuropathy type: polyneuropathy, other Acute kidney injury N17.9 DVT prophylaxis Z29.9 (1) Diabetes mellitus, type 2 Diabetes mellitus complication detail: with unspecified neuropathy Diabetes mellitus complication status: with neurologic complications Diabetes mellitus residential insulin use: without residential use Qualified Code(s): E11.40 - Type 2 diabetes mellitus with diabetic neuropathy, unspecified (2) CAD (coronary artery disease) Associated angina: without angina Coronary Disease-Associated Artery/Lesion type: [place] artery [place] vs. transplanted heart: [place] heart Qualified Code(s): I25.10 - Atherosclerotic heart disease of [place] coronary artery without angina pectoris (3) A-fib Atrial fibrillation type: permanent Qualified Code(s): I48.21 - Permanent atrial fibrillation (4) Peripheral neuropathy Peripheral neuropathy type: polyneuropathy, other Qualified Code(s): G62.89 - Other specified polyneuropathies (5) GERD (gastroesophageal reflux disease) Esophagitis presence: esophagitis presence not specified Qualified Code(s): K21.9 - Gastro-esophageal reflux disease without esophagitis (6) Hypertension Hypertension type: essential hypertension Qualified Code(s): I10 - Essential (primary) hypertension
[2019-09-02] MEDS: SENNA 8.6 MG TAB PO SCH (20:56)
[2019-09-03] MEDS: OXYCODONE HCL 20 MG TABCR (OXYCONTIN) PO SCH ×2 (00:14→12:53)
[2019-09-03] MEDS: ACETAMINOPHEN 500 MG TAB PO SCH ×2 (05:04→13:56)
[2019-09-03] MEDS: KETOROLAC TROMETHAMINE 15 MG/ML VIAL IV PRN (05:12)
[2019-09-03] MEDS: OXYCODONE HCL IR 5 MG TAB (IMMEDIATE RELEASE) PO PRN ×2 (07:12→15:17)
--- NOTE | 2019-09-03 08:02 | Orthopedic Progress Note ---
Date of Service September 03, 2019 Assessment & Plan (1) Bilateral primary osteoarthritis of knee: Postop day 5 status post bilateral total knee arthroplasties. PT/OT protocols. Weightbearing as tolerated. DVT prophylaxis with Eliquis twice daily, SCDs, THIERNO turk. Pain management addressed with patient, patient currently comfortable. Mild leukocytosis-asymptomatic presently. Post likely secondary due to preoperative steroids and surgical stress. Improved. Discharge planning-recent discussion this morning concerning [facility]. Patient's rehab notes shows that they are recommending 3 hours of rehab daily at this point in time. I spoke to Laci in the physical therapy department. Essentially they are recommending a rehab facility versus home health. We discussed that we would see how he does in PT today. I also spoke to case management. Plans will be to get an authorization for [facility] if needed. Unless the patient is greatly improved, we can plan on sending him to [facility] rehab today for further PT. Subjective Postop day 5 status post bilateral total knee arthroplasties. Patient is currently sitting up in bed. He appears comfortable. He is eating breakfast. He discussed his progress. He continues to progress slowly with his PT. Physical therapy notes continue to recommend 3 hours of rehab daily. I discussed the possibility of him going to a rehab facility before going home. Kuldip hough states that he has his at home but she had a stroke in the recent past. I am not sure how much help he would truly have at home. He is otherwise remaining stable and has no complaints. Pain is controlled. Physical Exam Physical Exam: Silverlon dressings are clean, dry, and intact. Calves are s oft nontender. Neurovascular is intact. Toes are mobile. Results & Data ([facility]) Vital Signs (Past 12 Hours) Vital Signs Temp Pulse Resp BP Pulse Ox 09/03/19 05:33 36.4 C L 88 16 114/79 99 09/02/19 23:19 36.8 C 98 H 16 106/76 98 09/02/19 20:47 114 H 114/82
[2019-09-03] MEDS: FERROUS GLUCONATE 324 MG TAB PO SCH (08:10)
[2019-09-03] MEDS: DOCUSATE SODIUM 100 MG CAP PO SCH (08:11)
[2019-09-03] MEDS: carvediloL 12.5 MG TAB PO SCH (08:11)
[2019-09-03] MEDS: FOLIC ACID 1 MG TAB PO SCH (08:12)
[2019-09-03] MEDS: APIXABAN 5 MG TABLET PO SCH (08:12)
[2019-09-03] MEDS: POTASSIUM CHLORIDE 10 MEQ TABCR PO SCH (08:12)
[2019-09-03] MEDS: PANTOprazole 40 MG TAB PO SCH (08:13)
[2019-09-03] MEDS: CHOLECALCIFEROL 1,000 UNITS 25 MCG TAB PO SCH (08:14)
[2019-09-03] MEDS: THIAMINE HCL 100 MG TAB PO SCH (08:14)
[2019-09-03] MEDS: CEROVITE ADV FORMULA TAB PO SCH (08:14)
[2019-09-03] MEDS: GABAPENTIN 100 MG CAP PO SCH ×2 (08:14→12:53)
[2019-09-03] MEDS: POLYETHYLENE (MIRALAX) 17 GM PACK PO SCH (08:14)
[2019-09-03] MEDS: INSULIN ASPART 100 UNITS/ML 3 ML PEN SC SCH ×2 (08:23→12:42)
[2019-09-03] MEDS: MoRPHine SULFATE CR 15 MG TABCR PO SCH (08:53)
[2019-09-03] MEDS ORDERED: FUROSEMIDE 20 MG TAB PO SCH (09:00)
[2019-09-03] MEDS ORDERED: INSULIN GLARGINE SOLOSTAR 100 UNITS/ML 3 ML PEN SC SCH (09:00)
[2019-09-03] MEDS ORDERED: SPIRONOLACTONE 25 MG TAB PO SCH (09:00)
[2019-09-03] MEDS ORDERED: LOSARTAN POTASSIUM 50 MG TAB PO SCH (09:00)
--- NOTE | 2019-09-03 09:01 | Pharmacy Report ---
Pharmacy Glycemic Short Note 2 - Date of Service September 03, 2019 - Glycemic Short BSG Results (Last 24 hours): 09/02/19 09/02/19 09/02/19 08:25 12:23 17:14 POC Glucose 171 H 168 H 187 H 09/02/19 09/03/19 20:30 06:50 POC Glucose 182 H 228 H OUTPATIENT ANTIDIABETIC REGIMEN: * Linagliptin 5 mg daily, glimepiride 2 mg daily * A1c 6.9% 04/10/19 * A1C 7.4 08/30/19 ASSESSMENT: 09/03: * Patient received total of 69 units of insulin yesterday, of which 25 were basal insulin * Fasting BSG elevated this morning, despite basal increase yesterday, will continue to titrate basal insulin ; Order 20 units this morning and continue scale for tonight * Lunchtime BSG trending down to 109 mg/dL - will loosen CR PLAN FOR INPATIENT GLYCEMIC CONTROL: * Hold outpatient oral diabetes medications * Basal insulin - increase * Lantus 20 units this morning * Lantus HS per scale 0-5-10 units based upon BSG * Bolus insulin - loosen * NovoLog per scale ACHS or Q6hrs while NPO * Goal Range: Low 110 mg/dL - High 140 mg/dL * Correction Factor: 20 mg/dL/unit * Nutritional / Prandial insulin per carb ratio of 1 unit per 7 grams CHO consumed PLAN FOR DISCHARGE: * A1C= 7.4% - A reasonable A1c goal for adults is A1C less than 7% * A1c close to goal would recommend continuation of home diabetic medications on discharge and encourage healthy lifestyle (diet, exercise) * telehealth nurse educator consulted as patient in need of test strips - would recommend continued monitoring of blood sugars
--- NOTE | 2019-09-10 16:28 | Discharge Summary ---
DISCHARGE DIAGNOSIS: Degenerative joint disease, bilateral knees. SECONDARY DIAGNOSES: History of atrial fibrillation on Eliquis chronically, chronic anemia, CAD, diabetes mellitus type 2, gastroesophageal reflux disease, history of asthma, history of gout, hypertension, morbid obesity, osteoporosis, peripheral neuropathy, pulmonary hypertension. CONSULTS: Dr. De La Rosa. COMPLICATIONS: None. PROCEDURES: Bilateral total knee arthroplasty performed by Dr. Robertson on 08/29/2019. BRIEF HISTORY: As dictated in the history and physical. HOSPITAL SUMMARY: The patient was admitted on the above-noted date and had the above-noted surgery performed, which he tolerated well. On his first postoperative day, he was currently lying in bed sleeping at that time and he was in the process of doing his heel props under his heels. He was easily awoken and stated that his pain control was fairly good and had no other complaints. When asked, he stated he had some mild shortness of breath with activity, which was normal for him. He denies using oxygen at home and had no other complaints. Dressings were clean, dry and intact. Calves were soft, nontender, neurovascularly intact. Toes were mobile and he had good dorsiflexion, plantar flexion of bilateral feet and ankles. Vital signs were stable. He was afebrile and hemoglobin was 10.1. He was started on PT and OT protocols and continued on DVT prophylaxis and pain management and medical management per [facility] hospitalist service. By his second postoperative day, he was doing exercises with nursing that morning and stated he had difficulty with pain control that night. He was still using IV pain meds and was still having some pain that morning. He denied shortness of breath, chest pain or lightheadedness and essentially felt his pain was not controlled. Silverlon dressings were clean, dry and intact. Calves were soft, nontender and he had good dorsiflexion and plantar flexion of both feet. Drains have been removed. Vital signs were stable. He was afebrile and hemoglobin was 9.1. MS Contin was added to his pain regimen and he was continued on his protocol. Over the next several days the patient continued to progress slowly with his physical therapy, but remained medically stable. By 09/03/2019 we had discussed his progress and he continues to progress slowly with his PT. Physical therapy notes continued to recommend hours of rehabilitation daily and we discussed the possibility of him going to rehab facility before going home. He states that his had had a stroke in the past and he was not sure how much help she would be at home. He was otherwise remaining stable. He had no complaints. Pain was controlled. His physical exam had really not changed and was remaining stable. He was approved for [facility] of which case management arranged transfer. He was otherwise remaining stable medically as well as orthopedically and it was felt that he could be discharged to [facility] for further physical therapy and care. For further review, please see chart. LABORATORY AND X-RAY DATA: As per discharge instructions. DISCHARGE INSTRUCTIONS: The patient was transferred to [facility] for further physical therapy and care. DIET: Diabetic. ACTIVITY: Full weightbearing as tolerated with walker. Follow TK instruction sheets and special care instructions as noted. Follow up with Dr. Robertson in 2 weeks. The patient to call for appointment if one has not been made for you. DISCHARGE MEDICATIONS: Acetaminophen 1000 mg p.o. q. 8 hours, certified antioxidant one tab p.o. q.a.m., ferrous gluconate 324 mg p.o. b.i.d., folic acid 1 mg p.o. q.a.m., pantoprazole 40 mg p.o. q.a.m., MiraLax 17 grams p.o. b.i.d., thiamine 200 mg p.o. q.a.m. Plans were for MS Contin p.o. b.i.d. and oxycodone 1-2 tabs p.o. q. 4 hours p.r.n. for pain medication and resume home meds as listed.
== END 2019-09-03 16:55 | DRG 462 ==
LOC: ASU 06:48 → 3E 11:49